=== PATIENT | male | born 1950 | race Two or more races ===

== ENCOUNTER 2022-12-17 13:56 | Inpatient (IN) | payer OTHER, MEDICAID ==
[~2022-12-17] VITALS: Ht 167.6 cm; Wt 75.3 kg
[2022-12-17 14:17] VITALS: BP 143/58
--- NOTE | 2022-12-17 14:19 | NUR ---
Patient was wheelchair assisted to bed 5.
[2022-12-17] MEDS ORDERED: MORPHINE SULFATE 4 MG/ML SYR IVP ONE ×2 (14:55→16:30)
[2022-12-17] MEDS ORDERED: NACL 0.9% 1,000 ML IV ONE ×2 (14:55→16:30)
[2022-12-17] MEDS ORDERED: ONDANSETRON 4 MG/2 ML VIAL IVP ONE (14:55)
[2022-12-17 15:48] LABS: BASOPHILS % (AUTO) 0.4 % (0.0-2.0); EOSINOPHILS % (AUTO) 0.1 % (0.0-4.0); HEMATOCRIT 23.4 % (36-52); HEMOGLOBIN 7.3 g/dL (12.0-18.0); LYMPHOCYTES # (AUTO) 0.9 K/uL (2.0-11.5); LYMPHOCYTES % (AUTO) 8.8 % (20.5-51.1); MEAN CORPUSCULAR HEMOGLOBIN 19 pg (27-31); MEAN CORPUSCULAR HGB CONC 31 g/dL (33-37); MEAN CORPUSCULAR VOLUME 60.6 fL (80-94); MONOCYTES # (AUTO) 0.7 K/uL (0.8-1.0); MONOCYTES % (AUTO) 6.7 % (1.7-9.3); NEUTROPHILS # (AUTO) 8.2 K/uL (1.8-7.7); PLATELET COUNT (AUTO) 324 K/uL (140-450); RED BLOOD CELL COUNT(AUTO) 3.86 MIL/uL (4.20-6.10); RED CELL DISTRIBUTION WIDTH 18.4 % (11.6-13.7); WHITE BLOOD COUNT (AUTO) 9.7 K/uL (4.8-10.8)
[2022-12-17 15:59] LABS: PROTHROMBIN TIME 10.6 secs (10.8-13.4)
[2022-12-17 16:24] LABS: ALBUMIN 3.7 g/dL (3.4-5.0); ANION GAP 17.1 (8-16); ASPARTATE AMINOTRANSFERASE 21 U/L (15-37); CHLORIDE 102 mmol/L (98-107); CREATININE 1.2 mg/dL (0.6-1.3); GLUCOSE 121 mg/dL (74-106); LIPASE 85 U/L (73-393); POTASSIUM 4.1 mmol/L (3.5-5.1); SODIUM SERUM 140 mmol/L (136-145); TOTAL BILIRUBIN 0.6 mg/dL (0.0-1.0); UREA NITROGEN, BLOOD 21 mg/dL (7-18)
--- NOTE | 2022-12-17 16:27 | NUR ---
DR. JOSEPH RE-EVALUATING PATIENT AT BEDSIDE.
[2022-12-17] MEDS ORDERED: ACETAMINOPHEN 100 ML IV ONE (16:30)
--- NOTE | 2022-12-17 16:30 | NUR ---
PT C/O ABD PAIN X 2 DAYS WORSEINING TODAY. NAD. HX: HTN, DM
--- NOTE | 2022-12-17 16:36 | NUR ---
PT UNABLE TO VOID X 3 ATTEMPTS
--- NOTE | 2022-12-17 17:49 | NUR ---
UPDATED LU MOSQUEDA OF PATIENTS CONDITION.
[2022-12-17] MEDS ORDERED: MORPHINE SULFATE 4 MG/ML SYR ONE ×2 (17:58→22:37)
[2022-12-17] MEDS ORDERED: LISI5TAB18 PO (18:29)
[2022-12-17] MEDS ORDERED: GABA100C PO (18:29)
[2022-12-17] MEDS ORDERED: INSU100I7 SQ (18:29)
[2022-12-17] MEDS ORDERED: OMEP20EC11 PO (18:29)
[2022-12-17] MEDS ORDERED: ATOR40TA PO (18:29)
[2022-12-17] MEDS ORDERED: METF-346 PO (18:29)
[2022-12-17] MEDS ORDERED: APIX5TAB PO (18:29)
--- NOTE | 2022-12-17 18:33 | NUR ---
MED REC COMPLETE.
[2022-12-17 20:26] LABS: APPEARANCE,URINE CLEAR (CLEAR); BILIRUBIN,URINE NEGATIVE (NEGATIVE); BLOOD, URINE NEGATIVE (NEGATIVE); COLOR,URINE YELLOW (YELLOW); LEUKOCYTE ESTERASE ,URINE NEGATIVE (NEGATIVE); NITRITE, URINE NEGATIVE (NEGATIVE); UGLUCOSE NEGATIVE (NEGATIVE)
--- NOTE | 2022-12-17 20:28 | NUR ---
ADMISSION TO TELE DR SHAW TO ADMIT
[2022-12-17] MEDS ORDERED: NACL 0.9% 1,000 ML IV SCH ×2 (20:35→22:40)
--- NOTE | 2022-12-17 21:09 | NUR ---
CALLED TO GIVE REPORT TO LENI RN FOR CONTINUE OF CARE. PT WILL BE GOING TO TELE BED 127-B, VIA GURNEY TRANSFER. PT A&OX4, NO DISTTESS NOTED.
[2022-12-17 21:40] VITALS: BP 171/66
--- NOTE | 2022-12-17 21:40 | NUR ---
RECEIVED PT FROM ER A NEW ADMIT. AMBULATED TO THE BED WITH STEADY GAIT. COMPLAINING OF ABDOMINAL PAIN. CALL PLACED TO DR. SHAW, PER MD WILL BE PUTTING IN ORDERS. NO ACUTE RESPIRATORY ADMISSION QUESTIONS DONE USING AIR POLLUTION CONTROL ENGINEER PATIENCE #[id number]. SKIN WARM AND DRY TO TOUCH. ORIENTED TO MST SET UP, UPDATED WHITEBOARD, CALL LIGHT GIVEN TO PT, INSTRUCTION ON USE PROVIDED. INSTRUCTED TO CALL IF ASSISTANCE IS NEEDED. PT VERBALL ACKNOWLEDGE.
--- NOTE | 2022-12-17 22:34 | NUR ---
NEW ORDER FOR PAIN MEDICATION GIVEN BY DR. SHAW. INFORMED MD THAT SMALL BOWEL SERIES LAST PICTURES TO BE TAKEN AT 0000 PER X-RAY TECH, WILL INFORM HER OF RESULTS. PER MD NGT TO BE INSERTED WHEN RESULTS OF THE SMALL BOWEL SERIES IS OUT.
[2022-12-17] MEDS: MORPHINE SULFATE 4 MG/ML SYR IVP PRN (22:37)
[2022-12-17] MEDS ORDERED: POTASSIUM CHLORIDE 10 MEQ TABER PO PRN (22:40)
[2022-12-17 23:17] LABS: BARBITURATE, URINE NEGATIVE ng/ml (NEG <=200); BENZODIAZEPINE, URINE NEGATIVE ng/mL (NEG <=200); CANNABINOID, URINE NEGATIVE ng/mL (NEG <=50); COCAINE, URINE NEGATIVE ng/mL (NEG <=300); OPIATE, URINE POSITIVE ng/mL (NEG <=2000); PHENCYCLIDINE SCREEN,URINE NEGATIVE ng/mL (NEG <=25)
[2022-12-17 23:26] LABS: BASOPHILS % (AUTO) 0.4 % (0.0-2.0); EOSINOPHILS % (AUTO) 0.5 % (0.0-4.0); HEMATOCRIT 20.7 % (36-52); LYMPHOCYTES # (AUTO) 1.7 K/uL (2.0-11.5); LYMPHOCYTES % (AUTO) 15.5 % (20.5-51.1); MEAN CORPUSCULAR HEMOGLOBIN 19 pg (27-31); MEAN CORPUSCULAR HGB CONC 31 g/dL (33-37); MEAN CORPUSCULAR VOLUME 60.5 fL (80-94); MONOCYTES # (AUTO) 1.3 K/uL (0.8-1.0); MONOCYTES % (AUTO) 11.8 % (1.7-9.3); NEUTROPHILS # (AUTO) 7.7 K/uL (1.8-7.7); NEUTROPHILS % (AUTO) 71.8 % (42.2-75.2); PLATELET COUNT (AUTO) 297 K/uL (140-450); RED BLOOD CELL COUNT(AUTO) 3.42 MIL/uL (4.20-6.10); RED CELL DISTRIBUTION WIDTH 18.3 % (11.6-13.7); WHITE BLOOD COUNT (AUTO) 10.7 K/uL (4.8-10.8)
--- NOTE | 2022-12-17 23:37 | NUR ---
2237- MEDICATED PT WITH MORPHINE ORDERED, 05/13 ABDOMINAL PAIN. [id number] FOR PAIN, PT DENIES PAIN AT THIS TIME, MEDICATION HELPED PER PT.
[2022-12-17 23:48] LABS: HEMOGLOBIN 6.5 g/dL (12.0-18.0)
--- NOTE | 2022-12-17 23:51 | NUR ---
CALL PLACED TO DR. SHAW REGARDING HGB-6.5 AND TO LET MD KNOW THAT SMALL BOWEL FOLLOW THROUGH WILL NOT BE READ UNTIL [place] UNLESS ORDERED STAT. AWAITING CALL BACK.
[2022-12-18] VITALS: BP 136/56
[2022-12-18 00:04] LABS: ANION GAP 13.3 (8-16); CARBON DIOXIDE 27.8 mmol/L (21-32); CHLORIDE 106 mmol/L (98-107); CREATININE 1.1 mg/dL (0.6-1.3); GLUCOSE 66 mg/dL (74-106); POTASSIUM 4.1 mmol/L (3.5-5.1); SODIUM SERUM 143 mmol/L (136-145); UREA NITROGEN, BLOOD 19 mg/dL (7-18)
--- NOTE | 2022-12-18 00:12 | NUR ---
DR. SHAW ORDERED 1 UNIT PRBC TO BE TRANSFUSED FOR HGB-6.5. PER MD ORDER SMALL BOWEL FOLLOW THROUGH STAT, CALLED XRAY MADE AWARE. WILL INFORM HER OF RESULTS SOON I HAVE IT, NGT STILL ON HOLD PER MD.
[2022-12-18 00:23] LABS: AMYLASE 89 U/L (25-115); CHOL/HDL RATIO 2.1 (1-4.5); FREE T4 (FREE THYROXINE) 1.08 ng/dL (0.76-1.46); HDL CHOLESTEROL 42 mg/dL (40-60); LDL (CALC) 37 mg/dL (60-100); MAGNESIUM 1.5 mg/dL (1.8-2.4); PHOSPHORUS 5.2 mg/dL (2.5-4.9); THYROID STIMULATING HORMONE 1.49 uIU/mL (0.34-3.74); TRIGLYCERIDES 59 mg/dL (30-150)
[2022-12-18] MEDS: MAG SULF 2000 MG/WATER PREMIX 50 ML IV PRN (00:37)
--- NOTE | 2022-12-18 00:45 | NUR ---
INFORMED PT THAT ORDERED 1 UNIT OF PRBC HGB-6.5, CASINO ATTENDANT HEIDI WITH ID #[id number], PT AGREED AND SIGNED CONSENT. WILL TRANSFUSE SOON BLOOD IS READY.
--- NOTE | 2022-12-18 01:06 | NUR ---
BLOOD SUGAR ON BMP-66 MG/DL, SPOT SUGAR CHECKED 63 MG/DL. PT ASYMPTOMATIC AT THIS TIME. CALL PLACED DR. SHAW, AWAITING CALL BACK.
--- NOTE | 2022-12-18 01:15 | NUR ---
PER ARTIFICIAL LIMB FITTER, LAB CALLED AND INFORMED HER THAT NO BLOOD AVAILABLE AT THIS TIME. WILL FOLLOW UP.
--- NOTE | 2022-12-18 01:22 | NUR ---
ORDERED 1 UNIT PRBC STAT. LAB CALLED AND SAID THEY DO NOTHAVE TYPE B BLOOD AND THEY HAVE TO ORDER IT. TOLD THEM TO ORDER STAT.
--- NOTE | 2022-12-18 01:37 | NUR ---
2ND CALL PLACED TO DR. SHAW TO INFORM OF BS RESULTS. LEFT MESSAGE, AWAITING CALL BACK.
--- NOTE | 2022-12-18 02:00 | NUR ---
3RD CALL PLACED TO DR. SHAW, APPLICATION DEVELOPMENT INTERN AWARE. AWAITING CALL BACK.
--- NOTE | 2022-12-18 02:20 | NUR ---
ROUNDING DONE. PATIENT IS ASLEEP. BREATHING EVEN AND UNLABORED. CALL LIGHT WITHIN REACH.
--- NOTE | 2022-12-18 02:26 | NUR ---
DR. SHAW GAVE ORDERS. WILL CARRY OUT.
[2022-12-18] MEDS ORDERED: DEXTROSE 50% 50 ML SYR IVP PRN (02:30)
[2022-12-18] MEDS: MORPHINE SULFATE 4 MG/ML SYR IVP PRN ×4 (02:34→15:02)
--- NOTE | 2022-12-18 03:33 | NUR ---
RESULT OF SMALL BOWEL FOLLOW THROUGH RELAYED TO DR. SHAW, ORDERED TO GIVE MILK OF MAGNEIA NOW AND DAILY/PRN. START PT ON CLEAR LIQUID DIET AND NO NGT. WILL CARRY OUT ORDER.
[2022-12-18] MEDS ORDERED: MAGNESIUM HYDROXIDE 2400 MG/30 ML UDC PO ONE (03:34)
[2022-12-18] MEDS ORDERED: MAGNESIUM HYDROXIDE 2400 MG/30 ML UDC PO PRN (03:35)
[2022-12-18] MEDS: DEXT 5% /NACL 0.9% 1,000 ML IV SCH ×2 (03:40→22:30)
[2022-12-18 04:00] VITALS: BP 141/61
[2022-12-18] MEDS: ONDANSETRON 4 MG/2 ML VIAL IVP PRN (05:28)
--- NOTE | 2022-12-18 05:29 | NUR ---
WILL RETURN AT A LATER TIME PT IS IN PAIN AND HAS LARGE AMOUNT OF EMESIS LEADS WERE PLACED ON PT AND HE PROCEEDED TO VOMIT MULTIPLE TIMES AND RN WAS NOTIFIED
--- NOTE | 2022-12-18 05:48 | NUR ---
0540-PT COMPLAINING OF 05/13 ABDOMINAL, CALL PLACED TO DR. SHAW. AWAITING CALL BACK. 6005- DR. HYLTON IS HERE, INFORMED OF PTS COMPLAINING OF ABDOMINAL PAIN. PER MD WILL CHECK ON PT.
--- NOTE | 2022-12-18 05:53 | NUR ---
DR. HYLTON MADE AWARE OF HGB-6.5, ORDERED 1 UNIT PRBC TO BE TRANSFUSED BUT BLOOD NOT AVAILABLE.
--- NOTE | 2022-12-18 06:00 | NUR ---
ROUNDING DONE ON PT, PT CURRENTLY ASLEEP. NO S/SX OF PAIN NOR DISCOMFORT. NO NAUSEA NOR VOMITING NOTED AT THIS TIME.
[2022-12-18 06:04] LABS: BASOPHILS % (AUTO) 0.4 % (0.0-2.0); HEMATOCRIT 23.8 % (36-52); HEMOGLOBIN 7.2 g/dL (12.0-18.0); LYMPHOCYTES # (AUTO) 0.7 K/uL (2.0-11.5); MEAN CORPUSCULAR HEMOGLOBIN 19 pg (27-31); MEAN CORPUSCULAR HGB CONC 30 g/dL (33-37); MEAN CORPUSCULAR VOLUME 61.7 fL (80-94); MONOCYTES % (AUTO) 10.9 % (1.7-9.3); NEUTROPHILS # (AUTO) 7.4 K/uL (1.8-7.7); NEUTROPHILS % (AUTO) 80.7 % (42.2-75.2); PLATELET COUNT (AUTO) 318 K/uL (140-450); RED BLOOD CELL COUNT(AUTO) 3.85 MIL/uL (4.20-6.10); RED CELL DISTRIBUTION WIDTH 18.5 % (11.6-13.7); WHITE BLOOD COUNT (AUTO) 9.2 K/uL (4.8-10.8)
--- NOTE | 2022-12-18 06:23 | NUR ---
PER DR. HYLTON INSERT NGT TO LIS. INFORMED PT OF ORDER TO INSERT NGT, PT REFUSED. DR. BLACKBURN IS STILL HERE AND INFORMED MD OF REFUSAL.
[2022-12-18 06:29] LABS: ANION GAP 13.7 (8-16); CARBON DIOXIDE 28.4 mmol/L (21-32); CHLORIDE 105 mmol/L (98-107); CREATININE 1.1 mg/dL (0.6-1.3); GLUCOSE 107 mg/dL (74-106); MAGNESIUM 2.3 mg/dL (1.8-2.4); PHOSPHORUS 4.9 mg/dL (2.5-4.9); POTASSIUM 4.1 mmol/L (3.5-5.1); SODIUM SERUM 143 mmol/L (136-145); UREA NITROGEN, BLOOD 19 mg/dL (7-18)
--- NOTE | 2022-12-18 06:29 | NUR ---
CURRENT HGB-7.2 DR HYLTON MADE AWARE, PER MD CONTINUE TO TRANSFUSE 1 UNIT PRBC ORDERED.
[2022-12-18] MEDS: BLOOD GLUCOSE MONITORING 1 DEV DEV FS SCH ×4 (06:34→21:35)
[2022-12-18 08:00] VITALS: BP 138/54
[2022-12-18] MEDS ORDERED: metFORMIN 500 MG TAB PO SCH (08:00)
[2022-12-18] MEDS ORDERED: NON-FORMULARY ITEM (Omeprazole* (Prilosec*) 20 MG) PO SCH (09:00)
--- NOTE | 2022-12-18 09:05 | NUR ---
PATIENT HAS BEEN SCREENED AND CATEGORIZED MODERATE NUTRITION RISK. PATIENT WILL BE SEEN WITHIN 3-5 DAYS OF ADMISSION. REVIEWED BY GUALBERTO JULES RD
[2022-12-18] MEDS: PANTOPRAZOLE 40 MG INJ VIAL IVP SCH (09:11)
[2022-12-18] MEDS: GABAPENTIN 100 MG CAP PO SCH ×3 (09:21→17:08)
[2022-12-18] MEDS: lisinopriL 5 MG TAB PO SCH (09:21)
[2022-12-18] MEDS: DOCUSATE SODIUM 100 MG GELCAP PO SCH ×2 (09:23→21:00)
[2022-12-18] MEDS: APIXABAN 2.5 MG TAB PO SCH (09:25)
[2022-12-18 12:00] VITALS: BP 154/64
[2022-12-18 16:00] VITALS: BP 148/87
[2022-12-18] MEDS: INSULIN LISPRO SLIDING SCALE 100 UNITS/ML VIAL SUBQ PRN ×2 (17:01→21:58)
--- NOTE | 2022-12-18 19:27 | NUR ---
ENDORSE PATIENT IN STABLE CONDITION TO PM SHIFT WHILE NG-TUBE CONNECT TO WALL SUCTION. PIV INFUSING. PATIENT IS STILL NPO
--- NOTE | 2022-12-18 19:28 | NUR ---
RECEIVED SHIFT REPORT FROM JULIET ZULUAGA AND PATIENT WAS IN BED WITH FAMILY X 2 AT BEDSIDE. DENIES ABDOMINAL PAIN, NAUSEA OR VOMITING. PATIENT WAS STABLE AT THIS TIME. KEPT CLEAN AND DRY. NG TUBE INTACT FOR SUCTIONING. NO NOTED RESPIRATORY DISTRESS. PATIENT AND FAMILY INQUIRED ABOUT FOOD AND WATER CONSUMPTION. PATIENT WAS EDUCATED ON THE NEED TO FOLLOW ORDERS FOR NOTHING BY MOUTH FOR NOW UNTIL MD ADVISE DIFFERENT. PATIENT UNDERSTOOD AND AGREED. PATIENT STATED HE FEELS MUCH BETTER AFTER MORNING VOMITING EPISODE. SIDE RAILS UP X 2 FOR SAFETY AND COMFORT. CALL LIGHT WITHIN REACH. [email or web address]
[2022-12-18 20:00] VITALS: BP 146/42
[2022-12-18] MEDS ORDERED: INSULIN LANTUS 100 UNITS/ML 10 ML VIAL SUBQ SCH (21:00)
[2022-12-18] MEDS: ACETAMINOPHEN 325 MG TAB PO PRN (22:01)
[2022-12-18] MEDS: ATORVASTATIN 20 MG TAB PO SCH (22:03)
[2022-12-18] MEDS ORDERED: SODIUM FERRIC GLUCONATE 12.5 MG/ML AMP IV ONE (22:10)
--- NOTE | 2022-12-18 22:16 | NUR ---
PATIENT BECAME ARGUMENTATIVE DURING MEDICATION PASS. PATIENT REFUSED TYLENOL, LIPITOR, AND INSULIN COVERAGE FOR BLOOD SUGAR OF 189. PATIENT'S SON WAS CALLED TO ASSIST TO TAKING MEDICATION AND PATIENT STILL REFUSED LOAN SERVICING SPECIALIST MD WAS NOTIFIED OF PATIENT BEHAVIOR AT THIS TIME. [email or web address]
[2022-12-18] MEDS: SODIUM FERRIC GLUCONATE 125 MG in NACL 0.9% 100 ML IV SCH (22:22)
--- NOTE | 2022-12-18 22:31 | NUR ---
PATIENT BECAME ARGUMENTATIVE DURING MEDICATION PASS. PATIENT REFUSED HALF OF HIS TYLENOL FOR ELEVATED TEMPERATURE, ONE AND A HALF PILLS OF LIPITOR, AND INSULIN COVERAGE TO BLOOD SUGAR OF 189. CALLED PATIENT'S SON TO CONVINCE THE PATIENT TO TAKE HIS MEDICATION BUT HE GREW MORE FRUSTRATED AND REFUSED. WAS NOTIFIED OF PATIENT CURRENT BEHAVIOR TO REFUSE CARE. [email or web address]
--- NOTE | 2022-12-18 23:35 | NUR ---
PATIENT TEMPERATURE HAS A TEMPERATURE OF 102.3, BLOOD PRESSURE OF 95/36 THEN 102/36 AFTER TWO MINUTES, WITH PULSE AT 114. MD NOTIFIED OF LOW BLOOD PRESSURE AND BECAUSE PATIENT IS STILL REFUSING CARE TO REDUCE TEMPERATURE. [email or web address]
[2022-12-19] VITALS: BP 102/36
--- NOTE | 2022-12-19 00:55 | NUR ---
PATIENT NOTED IN BED WITHOUT INCIDENT. SLEEPING WITHOUT PAIN/DISCOMFORT. NO NOTED RESPIRATORY DISTRESS. SIDE RAILS UP X 2 CALL LIGHT WITHIN REACH. [email or web address]
[2022-12-19 04:00] VITALS: BP 154/68
[2022-12-19] MEDS: ONDANSETRON 4 MG/2 ML VIAL IVP PRN (05:17)
--- NOTE | 2022-12-19 05:17 | NUR ---
PATIENT HAS VOMITED TWICE WITH OUTPUT OF 200MLS. COVERING RN WAS TOLD AND WILL GIVE ZOFRAN TO STOP THE NAUSEA. NO S/S OF ASPIRATION OR CONGESTION. NURSING WILL MONITOR AND CONTINUE CHARTING ON THE MATTER. THIS WILL BE ENDORSED TO AM SHIFT. [email or web address]
[2022-12-19 05:39] LABS: BASOPHILS % (AUTO) 0.1 % (0.0-2.0); HEMATOCRIT 22.3 % (36-52); LYMPHOCYTES # (AUTO) 0.9 K/uL (2.0-11.5); LYMPHOCYTES % (AUTO) 6.4 % (20.5-51.1); MEAN CORPUSCULAR HEMOGLOBIN 18 pg (27-31); MEAN CORPUSCULAR HGB CONC 31 g/dL (33-37); MEAN CORPUSCULAR VOLUME 60.1 fL (80-94); MONOCYTES # (AUTO) 2.1 K/uL (0.8-1.0); MONOCYTES % (AUTO) 15.2 % (1.7-9.3); NEUTROPHILS # (AUTO) 11.1 K/uL (1.8-7.7); NEUTROPHILS % (AUTO) 78.3 % (42.2-75.2); PLATELET COUNT (AUTO) 314 K/uL (140-450); RED BLOOD CELL COUNT(AUTO) 3.72 MIL/uL (4.20-6.10); RED CELL DISTRIBUTION WIDTH 18.6 % (11.6-13.7); WHITE BLOOD COUNT (AUTO) 14.1 K/uL (4.8-10.8)
[2022-12-19 06:06] LABS: ANION GAP 14.3 (8-16); CARBON DIOXIDE 28.7 mmol/L (21-32); CHLORIDE 102 mmol/L (98-107); CREATININE 1.5 mg/dL (0.6-1.3); GLUCOSE 228 mg/dL (74-106); SODIUM SERUM 141 mmol/L (136-145); UREA NITROGEN, BLOOD 33 mg/dL (7-18)
[2022-12-19 06:11] LABS: MAGNESIUM 2.2 mg/dL (1.8-2.4); PHOSPHORUS 4.2 mg/dL (2.5-4.9)
[2022-12-19 06:26] LABS: HEMOGLOBIN 6.8 g/dL (12.0-18.0)
--- NOTE | 2022-12-19 06:29 | NUR ---
MARY FROM LAB REPORTED PATIENT LAB VALUE FOR HEMOGLOBIN AT 6.9. IT WAS REPORTED TO DR MITCHELL.
--- NOTE | 2022-12-19 06:30 | NUR ---
WAS NOTIFIED OF CRITICAL LABS. CONTINUE WITH BLOOD TRANSFUSION FROM PREVIOUS DAY. [email or web address]
[2022-12-19] MEDS: BLOOD GLUCOSE MONITORING 1 DEV DEV FS SCH ×4 (07:04→21:00)
[2022-12-19] MEDS: INSULIN LISPRO SLIDING SCALE 100 UNITS/ML VIAL SUBQ PRN ×4 (07:07→22:20)
--- NOTE | 2022-12-19 07:19 | NUR ---
ENDORSED CONTINUITY FOR CARE TO RAUL ZULUAGA (REGISTRY), PATIENT WAS STABLE DURING SHIFT CHANGE. [email or web address]
[2022-12-19 08:00] VITALS: BP 132/59
[2022-12-19] MEDS: PANTOPRAZOLE 40 MG INJ VIAL IVP SCH (08:29)
[2022-12-19] MEDS: MORPHINE SULFATE 4 MG/ML SYR IVP PRN (08:32)
[2022-12-19] MEDS: APIXABAN 2.5 MG TAB PO SCH (09:00)
[2022-12-19] MEDS: lisinopriL 5 MG TAB PO SCH (09:00)
[2022-12-19 09:06] LABS: FOLIC ACID > 20.00 ng/mL (>3.0)
[2022-12-19] MEDS: DOCUSATE SODIUM 100 MG GELCAP PO SCH ×2 (09:53→20:08)
[2022-12-19] MEDS: GABAPENTIN 100 MG CAP PO SCH ×3 (09:53→17:03)
[2022-12-19 10:01] VITALS: BP 110/48
--- NOTE | 2022-12-19 14:48 | NUR ---
Patient resting in bed with low intermittent suction via nasogastric tube.
[2022-12-19 16:00] VITALS: BP 123/53
[2022-12-19] MEDS: DEXT 5% /NACL 0.9% 1,000 ML IV SCH (18:30)
--- NOTE | 2022-12-19 19:30 | NUR ---
RECD. REPORT FROM MARGARETH GARCIA. PATIENT RESTING IN BED, AWAKE, A/OX4. RESPIRATION EVEN AND UNLABORED. IV OF D5NS AT 50 ML/HR INFUSING RIGHT AC G20. NGT IN PLACED ON LOW INTERMITTENT SUCTION DRAINING LIGHT BROWN FLUID. USES THE URINAL. DENIES PAIN 0/10.
[2022-12-19 20:00] VITALS: BP 115/54
--- NOTE | 2022-12-19 20:00 | NUR ---
Patient's Plan of Care was discussed and reviewed with HANNAH: RENEE
[2022-12-19 20:02] LABS: FERRITIN 9 ng/mL (30 - 400)
[2022-12-19] MEDS: ATORVASTATIN 20 MG TAB PO SCH (20:08)
[2022-12-19] MEDS: ACETAMINOPHEN 325 MG TAB PO PRN (20:25)
--- NOTE | 2022-12-19 21:10 | NUR ---
HAD BM MODERATE AMOUNT OF YELLOW SOFT BM WITH SOME LIQUID IN IT. STOOL FOR OCCULT BLOOD OBTAINED AND SENT TO LAB.
[2022-12-19] MEDS: SODIUM FERRIC GLUCONATE 125 MG in NACL 0.9% 100 ML IV SCH (21:35)
--- NOTE | 2022-12-20 02:20 | NUR ---
ASSISTED TO BR TO HAVE ANOTHER BM. HAD MODERATE AMOUNT OF LIQUID BM. BACK TO BED AFTER BM. ADVISED TO GO BACK TO SLEEP.
[2022-12-20 04:00] VITALS: BP 132/48
[2022-12-20] MEDS: MUPIROCIN CA NASAL 2% 1GM TUBE NS SCH (04:12)
[2022-12-20] MEDS: CHLORHEXADINE GLUC 2% CLOTH TP SCH (04:12)
--- NOTE | 2022-12-20 04:12 | NUR ---
POSITIVE FOR MRSA OF THE NARES. ADMINISTERED BACTROBAN AND CHLORHEXIDINE PER MD ORDER.
[2022-12-20] MEDS: DEXT 5% /NACL 0.9% 1,000 ML IV SCH ×2 (04:21→14:30)
[2022-12-20 05:48] LABS: BASOPHILS % (AUTO) 0.2 % (0.0-2.0); EOSINOPHILS % (AUTO) 0.1 % (0.0-4.0); HEMATOCRIT 20.9 % (36-52); LYMPHOCYTES % (AUTO) 7.1 % (20.5-51.1); MEAN CORPUSCULAR HEMOGLOBIN 19 pg (27-31); MEAN CORPUSCULAR HGB CONC 30 g/dL (33-37); MEAN CORPUSCULAR VOLUME 61.5 fL (80-94); MONOCYTES % (AUTO) 13.5 % (1.7-9.3); NEUTROPHILS # (AUTO) 11.6 K/uL (1.8-7.7); NEUTROPHILS % (AUTO) 79.1 % (42.2-75.2); PLATELET COUNT (AUTO) 277 K/uL (140-450); RED CELL DISTRIBUTION WIDTH 19.1 % (11.6-13.7); WHITE BLOOD COUNT (AUTO) 14.7 K/uL (4.8-10.8)
[2022-12-20 06:16] LABS: MAGNESIUM 2.4 mg/dL (1.8-2.4); PHOSPHORUS 2.9 mg/dL (2.5-4.9)
[2022-12-20 06:17] LABS: HEMOGLOBIN 6.3 g/dL (12.0-18.0)
--- NOTE | 2022-12-20 06:25 | NUR ---
INFORMED DR. HYLTON PT HGB TODAY IS 6.3 BUT BLOOD TYPE B+ HARD TO PROCURE, LAB INQUIRING IF WE CAN GIVE TYPE O INSTEAD. STATED OK TO GIVE TYPE O AND GIVE PROCRIT 5000 UNITS SQ 3 TIMES A DAY. CHARGE NURSE YUAN INFORMED LAB ABOUT DR. HYLTON ORDER TO GIVE TYPE 0.
[2022-12-20 06:26] LABS: ANION GAP 13.7 (8-16); CARBON DIOXIDE 26.2 mmol/L (21-32); CHLORIDE 107 mmol/L (98-107); CREATININE 1.3 mg/dL (0.6-1.3); GLUCOSE 171 mg/dL (74-106); POTASSIUM 3.9 mmol/L (3.5-5.1); SODIUM SERUM 143 mmol/L (136-145); UREA NITROGEN, BLOOD 39 mg/dL (7-18)
[2022-12-20] MEDS: BLOOD GLUCOSE MONITORING 1 DEV DEV FS SCH ×4 (06:36→20:32)
[2022-12-20] MEDS: INSULIN LISPRO SLIDING SCALE 100 UNITS/ML VIAL SUBQ PRN ×3 (06:38→20:34)
--- NOTE | 2022-12-20 07:20 | NUR ---
ENDORSED TO JOSE ZULUAGA IN STABLE CONDITION FOR CONTINUITY OF CARE.
[2022-12-20 08:00] VITALS: BP 125/55
[2022-12-20] MEDS: APIXABAN 2.5 MG TAB PO SCH (09:00)
[2022-12-20] MEDS ORDERED: EPOETIN ALFA-EPBX 10,000 UNITS/ML VIAL SUBQ SCH (09:00)
[2022-12-20] MEDS: lisinopriL 5 MG TAB PO SCH (10:03)
[2022-12-20] MEDS: GABAPENTIN 100 MG CAP PO SCH ×3 (10:07→20:14)
[2022-12-20] MEDS: PANTOPRAZOLE 40 MG INJ VIAL IVP SCH (10:07)
[2022-12-20] MEDS: DOCUSATE SODIUM 100 MG GELCAP PO SCH ×2 (10:16→20:15)
--- NOTE | 2022-12-20 10:25 | NUR ---
DC PLANNING LATE ENTRY- COLLAT INFO GATHERED 518 AT 11:10AM ASSESSMENT COMPLETE PLEASE REFER TO ASSESSMENT FOR ADDITIONAL DETAILS DC PLAN IS TENTATIVE ON PHYSICIANS RECOMMENDATIONS. KOFI REPORTS THAT HIS FATHER HAS BEEN NONCOMPLIANT AND CAN BE RESISTANT TO CARE. SW ENDORSED TO CM Addendum: 12/20/22 at 1025 by Maria Elena CARVER Amended: Links added.
--- NOTE | 2022-12-20 14:15 | NUR ---
B POSITIVE BLOOD UNIT IS IN PROCESS. NO TRANSFUSION REACTION.
--- NOTE | 2022-12-20 18:34 | NUR ---
Patient is talking on phone with family and visiting with his 's brother post blood transfusion.
--- NOTE | 2022-12-20 19:30 | NUR ---
RECEIVED PT FROM DAY RN FOR CONTINUITY OF CARE. PT AWAKE, ALERT AND ORIENTED X 4, ON ROOM AIR. NO S/SX OF DISTRESS NOTED. POC DISCUSSED. NO COMPLAINS OF PAIN RIGHT NOW. ALL PRECAUTIONS IN PLACE. CALL LIGHT WITHIN REACH. WILL CONTINUE TO MONITOR.
[2022-12-20 20:00] VITALS: BP 140/55
[2022-12-20] MEDS: SODIUM FERRIC GLUCONATE 125 MG in NACL 0.9% 100 ML IV SCH (20:14)
[2022-12-20] MEDS: ATORVASTATIN 20 MG TAB PO SCH (20:15)
--- NOTE | 2022-12-20 21:00 | NUR ---
SCHEDULED MEDICATIONS GIVEN. PT TOLERATED WELL. BLOOD SUGAR WAS 193. 2 UNITS INSULIN GIVEN. WILL CONTINUE TO MONITOR.
[2022-12-20 21:08] LABS: HEMATOCRIT 22.8 % (36-52); HEMOGLOBIN 7.1 g/dL (12.0-18.0)
--- NOTE | 2022-12-21 00:59 | NUR ---
PT ASLEEP IN BED. NO S/SX OF DISTRESS NOTED. CALL LIGHT WITHIN REACH. WILL CONTINUE TO MONITOR.
[2022-12-21] MEDS: HYDROcodone/APAP 7.5/325 MG 1 TAB PO PRN ×2 (01:30→16:39)
[2022-12-21] MEDS: CHLORHEXADINE GLUC 2% CLOTH TP SCH (02:32)
[2022-12-21] MEDS: MUPIROCIN CA NASAL 2% 1GM TUBE NS SCH (02:32)
[2022-12-21] MEDS: MORPHINE SULFATE 4 MG/ML SYR IVP PRN ×2 (02:50→16:51)
--- NOTE | 2022-12-21 02:50 | NUR ---
PT COMPLAINED OF 8/10 ABDOMINAL PAIN.PRN MORPHINE GIVEN.
[2022-12-21 05:48] LABS: BASOPHILS % (AUTO) 0.1 % (0.0-2.0); EOSINOPHILS % (AUTO) 0.4 % (0.0-4.0); HEMATOCRIT 23.4 % (36-52); HEMOGLOBIN 7.4 g/dL (12.0-18.0); LYMPHOCYTES # (AUTO) 1.1 K/uL (2.0-11.5); LYMPHOCYTES % (AUTO) 10.7 % (20.5-51.1); MEAN CORPUSCULAR HEMOGLOBIN 20 pg (27-31); MEAN CORPUSCULAR HGB CONC 32 g/dL (33-37); MONOCYTES # (AUTO) 1.1 K/uL (0.8-1.0); MONOCYTES % (AUTO) 10.3 % (1.7-9.3); NEUTROPHILS # (AUTO) 8.4 K/uL (1.8-7.7); NEUTROPHILS % (AUTO) 78.5 % (42.2-75.2); PLATELET COUNT (AUTO) 276 K/uL (140-450); RED BLOOD CELL COUNT(AUTO) 3.66 MIL/uL (4.20-6.10); RED CELL DISTRIBUTION WIDTH 19.8 % (11.6-13.7); WHITE BLOOD COUNT (AUTO) 10.7 K/uL (4.8-10.8)
[2022-12-21 06:07] LABS: ANION GAP 12.3 (8-16); CARBON DIOXIDE 24.6 mmol/L (21-32); CHLORIDE 107 mmol/L (98-107); GLUCOSE 190 mg/dL (74-106); POTASSIUM 3.9 mmol/L (3.5-5.1); SODIUM SERUM 140 mmol/L (136-145); UREA NITROGEN, BLOOD 24 mg/dL (7-18)
[2022-12-21 06:08] LABS: MAGNESIUM 1.9 mg/dL (1.8-2.4); PHOSPHORUS 2.8 mg/dL (2.5-4.9)
[2022-12-21] MEDS: INSULIN LISPRO SLIDING SCALE 100 UNITS/ML VIAL SUBQ PRN ×3 (06:35→21:43)
[2022-12-21] MEDS: BLOOD GLUCOSE MONITORING 1 DEV DEV FS SCH ×4 (06:35→21:39)
--- NOTE | 2022-12-21 07:19 | NUR ---
PT IS STABLE. NO ACUTE EVENT THROUGHOUT THE NIGHT. NO S/SX OF DISTRESS AT THIS MOMENT. NO COMPLAINS OF PAIN. ALL NEEDS MET.ALL PRECAUTIONS IN PLACE. CALL LIGHT WITHIN REACH. WILL ENDORSE TO DAY SHIFT NURSE.
--- NOTE | 2022-12-21 07:21 | NUR ---
ASSUMED CONTINUITY OF CARE. INITIAL ASSESSMENT DONE. KEEP COMFORTABLE ON BED. CALL LIGHT WITHIN REACH.
[2022-12-21 08:00] VITALS: BP 149/53
--- NOTE | 2022-12-21 08:00 | NUR ---
Patient's Plan of Care was discussed and reviewed with [facility]: DARWIN
[2022-12-21] MEDS: GABAPENTIN 100 MG CAP PO SCH ×3 (08:39→17:50)
[2022-12-21] MEDS: lisinopriL 5 MG TAB PO SCH (08:39)
[2022-12-21] MEDS: DOCUSATE SODIUM 100 MG GELCAP PO SCH ×2 (08:41→21:00)
[2022-12-21] MEDS: APIXABAN 2.5 MG TAB PO SCH (08:49)
[2022-12-21] MEDS: PANTOPRAZOLE 40 MG INJ VIAL IVP SCH (09:27)
[2022-12-21] MEDS: DEXT 5% /NACL 0.9% 1,000 ML IV SCH (10:30)
--- NOTE | 2022-12-21 11:54 | NUR ---
12/21/22 RD INITIAL ASSESSMENT COMPLETED PLEASE REFER TO NUTRITION ASSESSMENT UNDER CARE ACTIVITY FOR ESTIMATED NUTRITIONAL NEEDS. 1. RECOMMEND [id number] SOFT DIET TOLERATED 2. MONITOR BLOOD GLUCOSE LEVELS AND PO INTAKE 3. RD TO FOLLOW-UP 7 DAYS, LOW RISK GUALBERTO JULES RD
--- NOTE | 2022-12-21 12:50 | NUR ---
CONSUMED 45% LUNCH FOOD. TOLERATED WELL. NO C/O N/V.
--- NOTE | 2022-12-21 15:20 | NUR ---
DR. ROPER CAME AND SPOKE TO PT. AT BEDSIDE WITH ASSISTANCE FROM JARED BROWN REGARDING D/C PLAN TOMORROW. INFORMED CHARGE NURSE VELASQUEZ SALAS.
[2022-12-21 16:00] VITALS: BP 150/56
--- NOTE | 2022-12-21 16:51 | NUR ---
C/O ABD PAIN 03/13. MEDICATED MORPHINE 2 MG. IVP PRN Q4 PER MD ORDER GIVEN BY THIERNO SALAS. WASTED MORPHINE 2 MG IV AND IT WAS WITNESSED BY MYSELF. NO INITIAL REACTION FROM PAIN MEDICINE NOTED. WILL MONITOR.
--- NOTE | 2022-12-21 19:21 | NUR ---
BEDSIDE REPORT GIVEN TO RENEE BROWN. IN STABLE CONDITION.
--- NOTE | 2022-12-21 19:22 | NUR ---
RECD. RESTING IN BED, AWAKE, A/OX4. RESPIRATION EVEN AND UNLABORED. IV OF D5 0.45% NS INFUSING AT 50 ML/HR. ABLE TO AMBULATE BY HIMSELF TO THE BR. DENIES PAIN 0/10.
[2022-12-21 20:00] VITALS: BP 142/61
[2022-12-21] MEDS: SODIUM FERRIC GLUCONATE 125 MG in NACL 0.9% 100 ML IV SCH (20:47)
--- NOTE | 2022-12-21 20:47 | NUR ---
DARIENIT IVPB INFUSED BY JASMIN ZULUAGA.
[2022-12-21] MEDS: ATORVASTATIN 20 MG TAB PO SCH (21:33)
--- NOTE | 2022-12-21 22:00 | NUR ---
Patient's Plan of Care was discussed and reviewed with HANNAH DAUGHERTY
--- NOTE | 2022-12-22 | NUR ---
RESTING IN BED, SLEEPING COMFORTABLY.
[2022-12-22 04:00] VITALS: BP 129/53
--- NOTE | 2022-12-22 04:00 | NUR ---
SLEEPING COMFORTABLY IN BED, VS STABLE.
[2022-12-22] MEDS: MUPIROCIN CA NASAL 2% 1GM TUBE NS SCH (05:21)
[2022-12-22] MEDS: CHLORHEXADINE GLUC 2% CLOTH TP SCH (05:22)
[2022-12-22 05:44] LABS: BASOPHILS % (AUTO) 0.2 % (0.0-2.0); EOSINOPHILS # (AUTO) 0.1 K/uL (0-0.4); EOSINOPHILS % (AUTO) 0.8 % (0.0-4.0); HEMATOCRIT 23.5 % (36-52); HEMOGLOBIN 7.4 g/dL (12.0-18.0); LYMPHOCYTES # (AUTO) 1.8 K/uL (2.0-11.5); LYMPHOCYTES % (AUTO) 17.5 % (20.5-51.1); MEAN CORPUSCULAR HEMOGLOBIN 20 pg (27-31); MEAN CORPUSCULAR HGB CONC 32 g/dL (33-37); MEAN CORPUSCULAR VOLUME 63.9 fL (80-94); MONOCYTES % (AUTO) 9.3 % (1.7-9.3); NEUTROPHILS # (AUTO) 7.6 K/uL (1.8-7.7); NEUTROPHILS % (AUTO) 72.2 % (42.2-75.2); PLATELET COUNT (AUTO) 258 K/uL (140-450); RED BLOOD CELL COUNT(AUTO) 3.67 MIL/uL (4.20-6.10); RED CELL DISTRIBUTION WIDTH 20.2 % (11.6-13.7); WHITE BLOOD COUNT (AUTO) 10.5 K/uL (4.8-10.8)
[2022-12-22 05:53] LABS: ANION GAP 13.2 (8-16); CARBON DIOXIDE 24.8 mmol/L (21-32); CHLORIDE 106 mmol/L (98-107); CREATININE 0.8 mg/dL (0.6-1.3); GLUCOSE 135 mg/dL (74-106); MAGNESIUM 1.6 mg/dL (1.8-2.4); PHOSPHORUS 3.7 mg/dL (2.5-4.9); SODIUM SERUM 140 mmol/L (136-145); UREA NITROGEN, BLOOD 19 mg/dL (7-18)
[2022-12-22] MEDS: DEXT 5% /NACL 0.9% 1,000 ML IV SCH ×2 (06:30→07:46)
[2022-12-22] MEDS: BLOOD GLUCOSE MONITORING 1 DEV DEV FS SCH ×2 (07:15→11:53)
--- NOTE | 2022-12-22 07:15 | NUR ---
PT IS STABLE. ENDORSED PT TO ADRWIN YOUNG FOR CONTINUITY OF CARE.
--- NOTE | 2022-12-22 07:21 | NUR ---
ASSUMED CONTINUITY OF CARE. INITIAL ASSESSMENT DONE. KEEP COMFORTABLE ON BED. CALL LIGHT WITHIN REACH.
[2022-12-22 08:00] VITALS: BP 140/55
--- NOTE | 2022-12-22 08:00 | NUR ---
Patient's Plan of Care was discussed and reviewed with TRAY CHECKER: DARWIN
--- NOTE | 2022-12-22 08:55 | NUR ---
DR. ROPER CAME AND SPOKE TO PT. AT BEDSIDE WITH ASSISTANCE FROM CINDY -RN REGARDING D/C INSTRUCTIONS & TEACHINGS, AND MD FOLLOW UP.
[2022-12-22] MEDS: GABAPENTIN 100 MG CAP PO SCH (09:03)
[2022-12-22] MEDS: lisinopriL 5 MG TAB PO SCH (09:03)
[2022-12-22] MEDS: DOCUSATE SODIUM 100 MG GELCAP PO SCH (09:03)
[2022-12-22] MEDS: APIXABAN 2.5 MG TAB PO SCH (09:04)
[2022-12-22] MEDS: PANTOPRAZOLE 40 MG INJ VIAL IVP SCH (09:42)
[2022-12-22] MEDS: MAG SULF 2000 MG/WATER PREMIX 50 ML IV PRN (09:51)
[2022-12-22] MEDS ORDERED: DOCU-299 PO (09:58)
[2022-12-22] MEDS ORDERED: ASCO500C20 PO (09:58)
[2022-12-22] MEDS ORDERED: FERR325E14 PO (09:58)
[2022-12-22] MEDS ORDERED: VITA-415 PO (09:58)
[2022-12-22] MEDS: INSULIN LISPRO SLIDING SCALE 100 UNITS/ML VIAL SUBQ PRN (11:53)
--- NOTE | 2022-12-22 12:15 | NUR ---
D/C HOME VIA WHEELCHAIR ACCOMPANIED BY PT. SON -KOFI MOSQUEDA. NO C/O PAIN. NO SOB, NOTED. NO C/O N/V. IN STABLE CONDITION. INFORMED CHARGE NURSE VELASQUEZ SALAS.
== END 2022-12-22 12:49 | disposition home or self-care (01) | DRG 388 ==
LOC: MED 13:56 → MTU 20:36 → MMU 20:36
PROC: 0D9670Z Drainage of Stomach with Drainage Device, Via Natural or Artificial Opening (ICD-10-PCS; 2022-12-18)
PROC: 30233N1 Transfusion of Nonautologous Red Blood Cells into Peripheral Vein, Percutaneous Approach (ICD-10-PCS; principal; 2022-12-20)
DX: K56.600 Partial intestinal obstruction, unspecified as to cause (principal); N17.0 Acute kidney failure with tubular necrosis; R65.10 Systemic inflammatory response syndrome (SIRS) of non-infectious origin without acute organ dysfunction; D50.9 Iron deficiency anemia, unspecified; E86.0 Dehydration; E11.9 Type 2 diabetes mellitus without complications; E78.5 Hyperlipidemia, unspecified; I10 Essential (primary) hypertension; Z20.822 Contact with and (suspected) exposure to COVID-19; Z79.899 Other long term (current) drug therapy; Z79.84 Long term (current) use of oral hypoglycemic drugs; Z79.01 Long term (current) use of anticoagulants; Z90.49 Acquired absence of other specified parts of digestive tract
CPT/HCPCS: 36415; 71045; 74018; 74250; 80048; 80053; 80305; 81003; 82140; 82150; 82272; 82607; 82728; 82746; 82948; 83036; 83540; 83605; 83690; 83735; 83880; 84100; 84439; 84443; 84484; 85018; 85025; 85610; 85730; 86886; 86900; 86901; 86920; 87081; 96374; 96375; 99285; C9113; J1815; J2270; J2405; J2916; J3475; P9016; Q0092; Q5106

== ENCOUNTER 2023-01-07 18:25 | Inpatient (IN) | payer OTHER ==
[~2023-01-07] VITALS: Ht 172.7 cm; Wt 64.0 kg
[~2023-01-07 18:25] MED LIST: APIX5TAB PO; ASCO500C20 PO; ATOR40TA PO; DOCU-299 PO; FERR325E14 PO; GABA100C PO; INSU100I7 SQ; LISI5TAB18 PO; METF-346 PO; OMEP20EC11 PO; VITA-415 PO
[2023-01-07 18:34] VITALS: BP 167/71
--- NOTE | 2023-01-07 18:39 | NUR ---
Pt bib bls for abd pain x 3 days. Pt has visited this ed for the same reason previously. Pt has difficulty complying with asessmet due to pain. Pt is a/o x 4, vss, no ss of acute distress, breathing equal and unlabored, speech clear. Pt on monitor. MD at bedside.
[2023-01-07] MEDS ORDERED: ONDANSETRON 4 MG/2 ML VIAL IVP ONE (18:45)
[2023-01-07] MEDS ORDERED: MORPHINE SULFATE 4 MG/ML SYR IVP ONE ×2 (18:45→19:30)
[2023-01-07] MEDS ORDERED: NACL 0.9% 1,000 ML IV ONE ×2 (18:45→19:55)
--- NOTE | 2023-01-07 18:54 | NUR ---
LAB AT BEDSIDE
[2023-01-07 19:07] LABS: BASOPHILS % (AUTO) 0.1 % (0.0-2.0); EOSINOPHILS % (AUTO) 0.1 % (0.0-4.0); HEMATOCRIT 30.5 % (36-52); HEMOGLOBIN 9.3 g/dL (12.0-18.0); LYMPHOCYTES # (AUTO) 1.4 K/uL (2.0-11.5); MEAN CORPUSCULAR HEMOGLOBIN 21 pg (27-31); MEAN CORPUSCULAR HGB CONC 31 g/dL (33-37); MEAN CORPUSCULAR VOLUME 67.7 fL (80-94); MONOCYTES # (AUTO) 1.8 K/uL (0.8-1.0); MONOCYTES % (AUTO) 8.6 % (1.7-9.3); NEUTROPHILS # (AUTO) 17.2 K/uL (1.8-7.7); NEUTROPHILS % (AUTO) 84.2 % (42.2-75.2); PLATELET COUNT (AUTO) 244 K/uL (140-450); RED CELL DISTRIBUTION WIDTH 27.1 % (11.6-13.7); WHITE BLOOD COUNT (AUTO) 20.5 K/uL (4.8-10.8)
[2023-01-07 19:37] LABS: ALBUMIN 3.5 g/dL (3.4-5.0); ASPARTATE AMINOTRANSFERASE 17 U/L (15-37); CHLORIDE 101 mmol/L (98-107); GLUCOSE 184 mg/dL (74-106); LIPASE 198 U/L (73-393); SODIUM SERUM 139 mmol/L (136-145); TOTAL BILIRUBIN 0.5 mg/dL (0.0-1.0); UREA NITROGEN, BLOOD 38 mg/dL (7-18)
--- NOTE | 2023-01-07 19:51 | NUR ---
pt taken to CT via Dominic
[2023-01-07] MEDS ORDERED: PIPERACILLIN/TAZOBACTAM 3.375 GM in DEXTROSE 5% 50 ML IV ONE (19:55)
[2023-01-07] MEDS ORDERED: PIPERACILLIN/TAZOBACTAM 3.375 GM VIAL IV ONE (20:02)
--- NOTE | 2023-01-07 20:04 | NUR ---
PT RETURN FROM CT
--- NOTE | 2023-01-07 20:34 | NUR ---
Blood draw done at bedside.
[2023-01-07] MEDS ORDERED: DEXT 5% / NACL 0.9% 1,000 ML IV ONE (21:05)
--- NOTE | 2023-01-07 21:07 | NUR ---
Left with OR team.
--- NOTE | 2023-01-07 21:50 | NUR ---
PT TAKEN BY OR TEAM
[2023-01-07] MEDS ORDERED: BUPIVACAINE-MPF/EPI 0.25% 30 ML VIAL INJ ONE (22:10)
[2023-01-07] MEDS ORDERED: LIDOCAINE 1% 500 MG/50 ML VIAL ONE (22:10)
[2023-01-07] MEDS ORDERED: DOCUSATE SODIUM 100 MG GELCAP PO PRN (22:55)
[2023-01-07] MEDS ORDERED: HYDROcodone/APAP 7.5/325 MG 1 TAB PO PRN (22:55)
[2023-01-07] MEDS ORDERED: ACETAMINOPHEN 325 MG TAB PO PRN (22:55)
[2023-01-07] MEDS ORDERED: MORPHINE SULFATE 2 MG/ML SYR IVP PRN (22:55)
[2023-01-07] MEDS ORDERED: guaiFENesin DM 200/20 MG-10 ML 10 ML UDC PO PRN (22:55)
[2023-01-07] MEDS ORDERED: ZOLPIDEM 5 MG TAB PO PRN (22:55)
[2023-01-07] MEDS ORDERED: HYDROmorphone 1 MG/ML AMP IVP PRN (22:55)
[2023-01-07] MEDS ORDERED: LABETALOL 100 MG/20 ML VIAL ONE (23:00)
[2023-01-07] MEDS ORDERED: ROCURONIUM 50 MG/5 ML VIAL IV ONE ×2 (23:00→23:14)
[2023-01-07] MEDS ORDERED: fentaNYL citrate 0.05 MG/ML - 50mL vial IV ONE (23:00)
[2023-01-07] MEDS ORDERED: HYDROmorphone 2 MG TAB ONE (23:00)
[2023-01-07] MEDS ORDERED: PROPOFOL 200 MG/20 ML VIAL IV ONE ×2 (23:00→23:14)
[2023-01-07] MEDS ORDERED: SUGAMMADEX SODIUM 200 MG/2 ML VIAL IV ONE (23:00)
[2023-01-07] MEDS ORDERED: VECURONIUM 10 MG VIAL IVP ONE (23:00)
[2023-01-07] MEDS ORDERED: SUCCINYLCHOLINE CHLORIDE 200 MG/10 ML VIAL IVP ONE ×2 (23:00→23:13)
[2023-01-07] MEDS ORDERED: DEXTROSE 50% 50 ML SYR IVP PRN (23:00)
[2023-01-07] MEDS ORDERED: ONDANSETRON 4 MG/2 ML VIAL ONE (23:00)
[2023-01-07] MEDS ORDERED: DEFEROXAMINE 500 MG VIAL ONE (23:00)
[2023-01-07] MEDS ORDERED: INSULIN LISPRO 100 UNITS/ML VIAL SUBQ ONE (23:00)
[2023-01-07] MEDS ORDERED: DEXAMETHASONE 4 MG/ML VIAL ONE ×2 (23:00→23:13)
[2023-01-07] MEDS ORDERED: fentaNYL citrate 0.05 MG/ML VIAL ONE ×2 (23:12→23:21)
[2023-01-07 23:44] LABS: AMYLASE 108 U/L (25-115); FREE T4 (FREE THYROXINE) 1.42 ng/dL (0.76-1.46); HDL CHOLESTEROL 49 mg/dL (40-60); LDL (CALC) 32 mg/dL (60-100); MAGNESIUM 1.7 mg/dL (1.8-2.4); PHOSPHORUS 3.6 mg/dL (2.5-4.9); THYROID STIMULATING HORMONE 1.73 uIU/mL (0.34-3.74); TRIGLYCERIDES 86 mg/dL (30-150)
[2023-01-08] VITALS (11 sets, daily range): BP systolic 102–188; BP diastolic 44–92
[2023-01-08] MEDS ORDERED: fentaNYL citrate 0.05 MG/ML VIAL ONE (01:49)
[2023-01-08] MEDS ORDERED: ROCURONIUM 50 MG/5 ML VIAL IV ONE (02:19)
[2023-01-08] MEDS ORDERED: SUGAMMADEX SODIUM 200 MG/2 ML VIAL IV ONE (02:19)
--- NOTE | 2023-01-08 02:35 | NUR ---
RECEIVED PT FROM OR PER GARO, POST EXPLORATORY LAPAROTOMY, EXTENSIVE LYSIS OF ADHESIONS, SMALL BOWEL RESECTION. PT IS AWAKE BUT DROWSY. WITH O2 INHALATION AT 10 L/MIN VIA FACE MASK. WITH NGT ATTACHED TO RIGHT NARE ON HIGH INTERMITTENT SUCTION WITH GREENISH OUTPUT DRAINING. WITH MEDIAL ABDOMINAL SURGICAL WOUND DRESSING- INTACT AND DRY. WITH DOTTIE DRAIN ON NEGATIVE PRESSURE OVER RIGHT LATERAL LOWER ABDOMEN WITH SEROSANGUINEOUS OUTPUT. WITH PERIPHERAL IV ACCESS GAUGE 20 OVER LEFT WRIST AND RIGHT ANTECUBITAL AREA ATTACHED TO SALINE LOCK. ANOTHER IV ACCESS OVER RIGHT METACARPAL VEIN, G20 WITH LR RUNNING BOLUS DRIP. WITH SADLER CATHETER DRAINING BY GRAVITY WITH YELLOW COLORED OUTPUT. NO OTHER WOUNDS NOTED. SAFETY PRECAUTIONS INITIATED AND MAINTAINED.
[2023-01-08] MEDS ORDERED: HYDROmorphone PFS 2 MG/ML SYR ONE (02:41)
[2023-01-08] MEDS ORDERED: LABETALOL 20 MG/4 ML VIAL IVP ONE (02:56)
[2023-01-08 05:05] LABS: BASOPHILS % (AUTO) 0.1 % (0.0-2.0); HEMATOCRIT 27.7 % (36-52); HEMOGLOBIN 8.5 g/dL (12.0-18.0); LYMPHOCYTES # (AUTO) 0.7 K/uL (2.0-11.5); LYMPHOCYTES % (AUTO) 5.1 % (20.5-51.1); MEAN CORPUSCULAR HEMOGLOBIN 21 pg (27-31); MEAN CORPUSCULAR HGB CONC 31 g/dL (33-37); MEAN CORPUSCULAR VOLUME 67.6 fL (80-94); MONOCYTES # (AUTO) 1.5 K/uL (0.8-1.0); MONOCYTES % (AUTO) 10.6 % (1.7-9.3); NEUTROPHILS # (AUTO) 11.9 K/uL (1.8-7.7); NEUTROPHILS % (AUTO) 84.2 % (42.2-75.2); PLATELET COUNT (AUTO) 198 K/uL (140-450); RED BLOOD CELL COUNT(AUTO) 4.09 MIL/uL (4.20-6.10); RED CELL DISTRIBUTION WIDTH 27.2 % (11.6-13.7); WHITE BLOOD COUNT (AUTO) 14.2 K/uL (4.8-10.8)
[2023-01-08] MEDS: hydrALAZINE 20 MG/ML VIAL IVP PRN (05:10)
[2023-01-08 05:20] LABS: ALBUMIN 2.3 g/dL (3.4-5.0); ANION GAP 16.4 (8-16); ASPARTATE AMINOTRANSFERASE 18 U/L (15-37); CARBON DIOXIDE 23.3 mmol/L (21-32); CHLORIDE 105 mmol/L (98-107); CREATININE 1.3 mg/dL (0.6-1.3); GLUCOSE 226 mg/dL (74-106); POTASSIUM 4.7 mmol/L (3.5-5.1); SODIUM SERUM 140 mmol/L (136-145); TOTAL BILIRUBIN 0.4 mg/dL (0.0-1.0); UREA NITROGEN, BLOOD 30 mg/dL (7-18)
[2023-01-08] MEDS ORDERED: PIPERACILLIN/TAZOBACTAM 2.25 GM VIAL IV ONE (05:38)
[2023-01-08] MEDS: PIPERACILLIN/TAZOBACTAM 2.25 GM in DEXTROSE 5% 50 ML IV SCH ×5 (05:47→17:20)
[2023-01-08] MEDS: DEXT 5% /NACL 0.9% 1,000 ML IV SCH ×4 (06:55→22:03)
[2023-01-08] MEDS ORDERED: BLOOD GLUCOSE MONITORING 1 DEV DEV FS SCH (07:30)
--- NOTE | 2023-01-08 07:30 | NUR ---
REPORT GIVEN TO DAY SHIFT NURSEALLEN RN. ALL QUESTIONS ASKED. PT STILL FOR CLOSE MONITORING.
--- NOTE | 2023-01-08 07:31 | NUR ---
RECEIVED REPORT FROM SILVERSMITH APPRENTICE NURSE. PATIENT LYING DOWN IN BED, CONTINUES TO HAVE MODERATE TO SEVERE ABD PAIN, WILL CHECK ON PAIN MEDICATION. IV SITES INTACT, INFUSING IVF PER MD ORDERS. ABDOMINAL WOUND DRESSINGS INTACT, RIGHT DOTITE DRAIN IN PLACE WITH SEROSANGUINOUS DRAINAGE. REVIEWED PLAN OF CARE WITH PATIENT. VERBALIZED UNDERSTANDING. REINFORCEMENT NEEDED.
--- NOTE | 2023-01-08 07:33 | NUR ---
RECEIVED ON SUPPLEMENTAL OXYGEN AT 6 LPM VIA SIMPLE MASK; CHANGED OXYGEN DEVICE TO NASAL CANNULA TITRATED FIO2 TO 4 LPM WITH HUMIDIFIER; BRAKER PASSENGER TRAIN TO MONITOR AND TITRATE FIO2 TOLERATED; ALLEN/FRAME OPERATOR NOTIFIED
[2023-01-08] MEDS ORDERED: TPN PER PHARMACY MC PRN (08:15)
[2023-01-08] MEDS: INSULIN LISPRO SLIDING SCALE 100 UNITS/ML VIAL SUBQ PRN ×2 (08:26→12:41)
[2023-01-08] MEDS: PANTOPRAZOLE 40 MG INJ VIAL IVP SCH (08:27)
--- NOTE | 2023-01-08 08:44 | NUR ---
PATIENT HAS BEEN SCREENED AND CATEGORIZED HIGH NUTRITION RISK. PATIENT WILL BE SEEN WITHIN 1-2 DAYS OF ADMISSION. FNS REFERRAL RECEIVED FOR NAUSEA/VOMITING X3 DAYS AND REFUSING TO EAT ON 01/08/23. 01/08/23-01/09/[address]
--- NOTE | 2023-01-08 08:45 | NUR ---
SCHEDULED MEDICATIONS DUE GIVEN. COMPLAINS OF 10/10 PAIN, DILAUDID GIVEN AT THIS TIME. NGTUBE DISCONTINUED, OKAY TO GIVE ICE CHIPS AND START TPN X [address] CHRISTIAN. ORDERS INPUTTED. WILL CONTINUE TO MONITOR.
[2023-01-08 09:18] LABS: MAGNESIUM 1.4 mg/dL (1.8-2.4); PHOSPHORUS 4.3 mg/dL (2.5-4.9)
[2023-01-08] MEDS: MORPHINE SULFATE 2 MG/ML SYR IVP PRN ×2 (10:29→16:49)
[2023-01-08] MEDS ORDERED: MAG SULF 2000 MG/WATER PREMIX 50 ML IV SCH (10:45)
--- NOTE | 2023-01-08 10:58 | NUR ---
PICC NURSE PLACED DENISSE PICC LINE, CXR VERIFIED PLACEMENT. MORPHINE PRN GIVEN PRIOR FOR SEVERE PAIN. PATIENT REFUSED TO REPOSITION AT THIS TIME DUE TO SEVERE PAIN. PATIENT ACKNOWLEDGES NEEDS TO BE TURNED BUT CANNOT RIGHT NOW BECAUSE SLIGHT MOVEMENT CAUSES SEVERE PAIN. HE WILL LET US KNOW LATER WHEN PAIN SUBSIDES AND WE WILL REPOSITION.
--- NOTE | 2023-01-08 11:54 | NUR ---
01/08/23 RD INITIAL ASSESSMENT COMPLETED PLEASE REFER TO NUTRITION ASSESSMENT UNDER CARE ACTIVITY FOR ESTIMATED NUTRITIONAL NEEDS. 1. CONTINUE NPO DIET TOLERATED AND ADVANCE TO CLEAR LIQUID DIET ONCE MEDICALLY APPROPRIATE. 2. RD WILL FOLLOW UP ON WEIGHT, LABS, PO INTAKE AND GI FUNCTION TO SEE IF SUPPLEMENTS ARE APPROPRIATE MOVING FORWARD. 3. RD TO FOLLOW-UP 3-5 DAYS, MODERATE RISK BEBO HAMILTON, RD
--- NOTE | 2023-01-08 12:30 | NUR ---
SUPPLEMENTAL OXYGEN TITRATED FIO2 TO 2 LPM BY ALLEN/EFREM ZULUAGA
[2023-01-08] MEDS: BLOOD GLUCOSE MONITORING 1 DEV DEV FS SCH ×2 (12:38→17:15)
--- NOTE | 2023-01-08 12:39 | NUR ---
DC PLANNIN YRS OLD MALE PATIENT WAS ADMITTED FROM HOME WITH A DX OF PERFORATED BOWEL. PATIENT HAS A HX OF HTN AND DM. CT ABD/PELVIS SHOWED DILATED FLUID AND FECAL FILLED LOOPS OF SMALL BOWEL. RAPID COVID TEST NEGATIVE. ON O2 4L/NC SATING 99%. ADMINISTERED IVF, IV ABX ZOSYN. CONSULTED WITH SURGEON, JOSE AND NEPHANDREW. DC PLAN PER PATIENT RESPOND TO THE TREATMENT. CM TO FOLLOW Addendum: 01/09/23 at 1440 by RAKEL BEE CM DC PLANNING PATIENT HAD EXTENSIVE RUBEN WITH SMALL BOWEL PERFORATION S/P RESECTION. PATIENT IS TACHYCARDIC ON RA.01/07 BLOOD CULTURE NO GROWTH.01/08 MRSA (-).CXR - NO ACUTE CARDIO PULMONARY DISEASE.ON ZOSYN.HAD 1 UNIT PRBC FOR HGB 6.5 .LATEST HGB 8.1. .SURGERY,IDALMIS GARCIA ON BOARD.CM TO FOLLOW. Addendum: 01/10/23 at 0921 by Rachelle Link RN DC PLANNING: S/P LAPAROTOMY SMALL BOWEL RESECTION WITH DOTTIE DRAINAGE, ON TPN, STARTED CLEAR LIQUID DIET TOLERATED WELL. WBC 14.4 CONTINUED IVF AND IV ABX ZOSYN. H/H 7.5/23.4 MONITOR H/H. CARDIO, PULMO NEPHRO AND SURGEON FOLLOWING . PER NEPHRO NO NEED FOR HEMODIALYSIS. DOWN GRADE TO TELE. DC PLAN TO GO HOME [facility] WHEN STABLE. CM TO FOLLOW
--- NOTE | 2023-01-08 13:51 | NUR ---
PT. WITH LOW SHAR SCALE AT MODERATE TO HIGH RISK, CONTINUE TO FOLLOW PRESSURE INJURY PREVENTION INTERVENTIONS. -POSITIONING: TURN AND REPOSITION PATIENT Q 2H OR SOONER USE PILLOWS TO KEEP BONY PROMINENCES FROM DIRECT CONTACT WITH SURFACES USE REPOSITIONING WEDGES TO PROVIDE 30-DEGREE ANGLE FOR SIDE LYING POSITIONS OFFLOADING OR FOAM DRESSING TO ALL TUBING TO PREVENT MEDICAL DEVICES RELATED PRESSURE INJURY -RE-EVALUATING AND MANAGING INCONTINENCE MONITOR SKIN CONDITION DURING POSITION CHANGE DO NOT MASSAGE REDNESS, BONY PROMINENCES FREQUENT AFTAB-CARE AND PROVIDE BARRIER CREAMS PRN IF SOILING MOISTURE CONTROL BY OFFER BED TAYLOR/URINAL /ABSORBENT PAD TO WICK AND HOLD MOISTURE KEEP SKIN DRY AND PROTECT FROM FRICTION -MANAGE FRICTION/SHEAR/MOBILITY KEEP HOB AT THE LOWEST LEVEL OF ELEVATION NO MORE THAN 30 DEGREE UNLESS OTHERWISE CONTRAINDICATED USE LIFT SHEET OR TRANSFER DEVICE TO MOVE PATIENT AND PREVENT LATERAL SHEER. PROTECT HEELS, ELBOWS BONY PROMINENCES WITH SKIN BERRIES OR FOAM DRESSING IF EXPOSED TO FRICTION OFFLOAD BILATERAL HEELS BY PLACING PILLOWS UNDER CALVES AT ALL TIMES, UNLESS OTHERWISE CONTRAINDICATED -PRESSURE REDISTRIBUTION SURFACE THERAPY JASVIR ISOFLEX MATTRESS -NUTRITION: PLEASE FOLLOW RD RECOMMENDATIONS AND OFFER NUTRITION SUPPLEMENTS IF ORDERED. PLEASE CONTACT WOUND CARE NURSE FOR ANY QUESTION AND CHANGE OF WOUND CONDITION.
--- NOTE | 2023-01-08 14:05 | NUR ---
REMOVED FROM SUPPLEMENTAL OXYGEN TO ROOM AIR BY ALLEN/FLOW MANAGER
--- NOTE | 2023-01-08 15:00 | NUR ---
PT SLEEPING, AROUSABLE BY VOICE. WILL CONTINUE TO MONITOR.
--- NOTE | 2023-01-08 17:20 | NUR ---
SCHEDULED MEDICATIONS DUE GIVEN. WILL CONTINUE TO MONITOR.
--- NOTE | 2023-01-08 19:14 | NUR ---
GAVE REPORT TO MERCHANT POLICE NURSE FOR CONTINUITY OF CARE.
--- NOTE | 2023-01-08 19:14 | NUR ---
RECEIVED REPORT FROM PEWTER CASTER NURSE, MARGARETH VILLA. ALL CARES ASSUMED. RECEIVED PT LYING ON BED, AWAKE AND ORIENTED WITH SIDE RAILS RAISED UP. STILL IN MILD TO MODERATE PAIN. ON ROOM AIR WITH SPO2 AT 99%. ON SINUS TACHYCARDIA. AFEBRILE. WITH CLEAR BREATH SOUNDS. WITH ABDOMINAL WOUND DRESSING - DRY AND INTACT. WITH DOTTIE DRAIN INTACT OVER RLQ ON NEGATIVE PRESSURE WITH MINIMAL SEROSANGUINEOUS OUTPUT NOTED. WITH RIGHT UPPER PICC LINE FLOWING D5%0.9 NS AT 125 ML/HR - PATENT AND INTACT. ADDITIONAL PERIPHERAL IV ACCESS G20 NOTED OVER LEFT WRIST AND RIGHT METACARPAL VEIN - FLUSHED AND CAPPED. SADLER CATHETER INTACT DRAINING TO BY GRAVITY. SAFETY PRECAUTIONS IN PLACE. FIXED PT IN BED. WILL MONITOR PT CLOSELY.
[2023-01-08] MEDS: MULTIVITAMIN-12 10 ML in DEXTROSE 50% 600 ML, AMINO ACIDS 8.5% 500 ML, FAT EMULSION 20%... IV SCH ×4 (20:00)
--- NOTE | 2023-01-08 20:00 | NUR ---
CBG CHECKED- 126 MG/DL. TPN ATTACHED TO PICC LINE AND STARTED AT 30 ML/HR X 2HRS - FLOWING WELL
--- NOTE | 2023-01-08 20:43 | NUR ---
RECEIVED A CALL FROM DR. PHILL CHRISTIAN. UPDATED CURRENT PTS STATUS. WITH ORDERS TO WATCH OUT FOR INCREASING TACHYCARDIA ASSOCIATED WITH FEVER AND CHANGES IN DOTTIE OUTPUT APPEARANCE - BILIOUS AND PUS-LIKE. HE ALSO INFORMED THAT DR. ESPARZA WILL COVER THE PT FOR TODAY AND TOMORROW.
[2023-01-08] MEDS: HYDROmorphone 1 MG/ML AMP IVP PRN (20:57)
--- NOTE | 2023-01-08 20:57 | NUR ---
PT WITH COMPLAINTS OF PAIN 05/13. DILAUDID GIVEN IV SLOWLY. COMFORT MEASURES PROVIDED.
--- NOTE | 2023-01-08 22:00 | NUR ---
TPN TOLERATED. RATE INCREASED TO 50 ML/HR PER MD ORDER.
[2023-01-09] VITALS (17 sets, daily range): BP systolic 116–157; BP diastolic 43–67
[2023-01-09] MEDS: MORPHINE SULFATE 2 MG/ML SYR IVP PRN ×6 (01:39→20:30)
[2023-01-09] MEDS: INSULIN LISPRO SLIDING SCALE 100 UNITS/ML VIAL SUBQ PRN ×5 (02:02→23:21)
[2023-01-09] MEDS: DEXT 5% /NACL 0.9% 1,000 ML IV SCH ×2 (03:50→06:09)
--- NOTE | 2023-01-09 04:00 | NUR ---
PT REFUSED BED SPONGE BATH DUE TO PAIN. LINENS, BLANKETS CHANGED. KEPT CLEAN AND COMFORTABLE. PROVIDED TIME TO REST.
[2023-01-09 04:53] LABS: LYMPHOCYTES # (AUTO) 0.8 K/uL (2.0-11.5); LYMPHOCYTES % (AUTO) 4.6 % (20.5-51.1); MEAN CORPUSCULAR HEMOGLOBIN 21 pg (27-31); MEAN CORPUSCULAR HGB CONC 31 g/dL (33-37); MONOCYTES # (AUTO) 1.6 K/uL (0.8-1.0); MONOCYTES % (AUTO) 9.2 % (1.7-9.3); NEUTROPHILS # (AUTO) 14.7 K/uL (1.8-7.7); NEUTROPHILS % (AUTO) 86.2 % (42.2-75.2); PLATELET COUNT (AUTO) 175 K/uL (140-450); RED BLOOD CELL COUNT(AUTO) 3.13 MIL/uL (4.20-6.10); RED CELL DISTRIBUTION WIDTH 27.1 % (11.6-13.7)
[2023-01-09 04:54] LABS: HEMOGLOBIN 6.5 g/dL (12.0-18.0)
--- NOTE | 2023-01-09 04:54 | NUR ---
RECEIVED CALL FROM LAB WITH UPDATED HGB AND HEMATOCRIT LEVEL- 6.5 AND 21.0 RESPECTIVELY. NOTED.
--- NOTE | 2023-01-09 05:03 | NUR ---
DR. RUFF INFORMED OF PTS PRESENT HGB AND HCT LEVELS - WITH ORDER TO TRANSFUSE 1UNIT OF BLOOD. FACILITATED.
[2023-01-09] MEDS: PIPERACILLIN/TAZOBACTAM 2.25 GM in DEXTROSE 5% 50 ML IV SCH ×6 (05:35→23:10)
[2023-01-09 05:59] LABS: ANION GAP 11.5 (8-16); CARBON DIOXIDE 26.8 mmol/L (21-32); CHLORIDE 106 mmol/L (98-107); CREATININE 1.1 mg/dL (0.6-1.3); GLUCOSE 253 mg/dL (74-106); POTASSIUM 3.3 mmol/L (3.5-5.1); SODIUM SERUM 141 mmol/L (136-145); UREA NITROGEN, BLOOD 19 mg/dL (7-18)
[2023-01-09 06:02] LABS: MAGNESIUM 1.6 mg/dL (1.8-2.4); PHOSPHORUS 3.6 mg/dL (2.5-4.9)
[2023-01-09] MEDS: BLOOD GLUCOSE MONITORING 1 DEV DEV FS SCH ×5 (06:09→23:18)
--- NOTE | 2023-01-09 07:00 | NUR ---
PT ABLE TO SLEEP AFTER GIVING PAIN MEDICATIONS. CROSSMATCHING DONE FOR BT. INFORMED CONSENT FOR BT SECURED. STILL ON SINUS TACHYCARDIA.WITH EPISODES OF INCREASED BLOOD PRESSURE. NOT RESPIRATORY DISTRESS NOTED. STILL IN PAIN SOMETIMES FROM SURGICAL SITE. UO OF 1100ML OBTAINED AND DOTTIE OUTPUT SEROSANGUINEOS 50ML.
--- NOTE | 2023-01-09 07:15 | NUR ---
REPORT GIVEN TO [facility] NURSE, MARGARETH CAMACHO. ALL QUESTIONS ASKED.
[2023-01-09] MEDS ORDERED: MAG SULF 2000 MG/WATER PREMIX 50 ML IV SCH (07:30)
--- NOTE | 2023-01-09 07:30 | NUR ---
REPORT FROM RESIDENT CARE DIRECTOR RN. PT LYING ON BED, A/O X4. SAMOAN SPEAKER. THIS RN DOPER OPERATOR IS SAMOAN SPEAKING FLUENT. SIDE RAILS RAISED X 4 FOR SAFETY. ON ROOM AIR WITH SPO2 AT 99%, SINUS TACHYCARDIA. AFEBRILE. WITH CLEAR BREATH SOUNDS. ABD. WOUND DRESSING - DRY/INTACT. WITH DOTTIE DRAIN INTACT OVER RLQ ON NEGATIVE PRESSURE WITH MINIMAL SEROSANGUINEOUS OUTPUT NOTED. R- UPPER PICC, D5%0.9 NS AT 125 ML/HR - PATENT AND INTACT. ADDITIONAL PERIPHERAL IV ACCESS G20 L-WRIST AND R-HAND - FLUSHED AND CAPPED. SADLER CATH INTACT DRAINING BY GRAVITY. SAFETY PRECAUTIONS IN PLACE. PT. WITH NO ACUTE DISTRESS. NO SOB. WILL CONT. TO MONITOR
--- NOTE | 2023-01-09 08:05 | NUR ---
UNIT OF BLOOD PRBC [id number] STARTED TO INFUSE WITH NO DIFF. ALL PRODUCTS CHECK WITH MARISEL ZULUAGA PER PROTOCOL. PT. WITH NO ACUTE DISTRESS. PT. AGREES TO BLOOD TRANSFUSION AND CONSENT SIGNED. WILL CONT. TO MONITOR.
--- NOTE | 2023-01-09 08:30 | NUR ---
PRBC BLOOD PRODUCTS INFUSING WITH NO DIFF. PT. WITH NO ACUTE DISTRESS. AWAKE AND ALERT. NO SIGNS OF TRANSFUSION REACTION. VSS WITH NO FEVER. WILL CONT. TO MONITOR.
[2023-01-09] MEDS: PANTOPRAZOLE 40 MG INJ VIAL IVP SCH (08:56)
[2023-01-09] MEDS ORDERED: HYDROmorphone PFS 2 MG/ML SYR ONE (09:02)
[2023-01-09] MEDS: HYDROmorphone 1 MG/ML AMP IVP PRN ×2 (09:06→23:05)
--- NOTE | 2023-01-09 09:50 | NUR ---
K+ 3.3 per lab reported to pharmacy for TPN adjustment. Spoke with Siomara. Pharmacy will adjust as per protocol for TPN. Pt. with no acute distress. Awake and alert. Resting quietly. Denies pain now. Blood transfusion infusing with NO diff. No sign of transfusion adverse reaction. Will cont. to monitor.
--- NOTE | 2023-01-09 10:45 | NUR ---
Dorinda SOLANO at bedside. She removed abd. dressing with RN assistance. Dressing dry and intact. No bleeding from abd. surgical site. Sutures in place. Appears to be healing with no difficulty. Dressing re-applied and tapped with no diff. Pt. with no acute distress. Will cont. to monitor.
--- NOTE | 2023-01-09 11:00 | NUR ---
PRBC BLOOD PRODUCTS DONE INFUSING WITH NO DIFF. PT. WITH NO ACUTE DISTRESS. AWAKE AND ALERT. NO SIGNS OF TRANSFUSION REACTION. VSS WITH NO FEVER. WILL CONT. TO MONITOR. IV LINE FLUSHED AND CBC ORDERED PER PROTOCOL.
[2023-01-09] MEDS: POTASSIUM CHLORIDE 40 MEQ, LIDOCAINE MPF 1% 25 MG in NACL 0.9% 250 ML IV PRN (11:33)
[2023-01-09 12:08] LABS: T4 (THYROXINE) 6.2 ug/dL (4.5-12.0)
--- NOTE | 2023-01-09 12:35 | NUR ---
PT. TAKEN TO CT SCAN VIA BED WITH RNs, HEART MONITOR. PT. WITH NO ACUTE DISTRESS. TOLERATED WITH NO DIFF. ALL LINEN IN BED CHANGED AND PT.'S GOWN CHANGED PER DAILY HYGIENE PROTOCOL. PT. RESTING WITH NO C/O PAIN. WILL CONT. TO MONITOR
--- NOTE | 2023-01-09 13:26 | NUR ---
Status UPDATE PT LYING ON BED, A/O X4. TANZANIAN SPEAKER. THIS RN NECKTIE CENTRALIZING MACHINE OPERATOR IS TANZANIAN SPEAKING FLUENT. SIDE RAILS RAISED X 4 FOR SAFETY. ON ROOM AIR WITH SPO2 AT 95%, SINUS TACHYCARDIA. AFEBRILE. ABD. WOUND DRESSING - DRY/INTACT. WITH DOTTIE DRAIN INTACT OVER RLQ ON NEGATIVE PRESSURE WITH MINIMAL SEROSANGUINEOUS OUTPUT NOTED. R- UPPER PICC, D5%0.9 NS AT TKO FOR NOW - PATENT AND INTACT. ADDITIONAL PERIPHERAL IV ACCESS G20 L-WRIST - FLUSHED AND CAPPED. SADLER CATH INTACT DRAINING BY GRAVITY. SAFETY PRECAUTIONS IN PLACE. PT. WITH NO ACUTE DISTRESS. NO SOB. WILL CONT. TO MONITOR. PT. DENIES PAIN NOW.
[2023-01-09 13:54] LABS: HEMATOCRIT 25.8 % (36-52); HEMOGLOBIN 8.1 g/dL (12.0-18.0); MEAN CORPUSCULAR HEMOGLOBIN 22 pg (27-31); MEAN CORPUSCULAR HGB CONC 31 g/dL (33-37); MEAN CORPUSCULAR VOLUME 71.1 fL (80-94); PLATELET COUNT (AUTO) 173 K/uL (140-450); RED BLOOD CELL COUNT(AUTO) 3.63 MIL/uL (4.20-6.10); RED CELL DISTRIBUTION WIDTH 29.8 % (11.6-13.7); WHITE BLOOD COUNT (AUTO) 16.9 K/uL (4.8-10.8)
[2023-01-09 14:42] LABS: BASOPHILS % (MANUAL) 1 % (0-2); EOSINOPHILS % (MANUAL) 0 % (0-4); MONOCYTES % (MANUAL) 14 % (5-12)
[2023-01-09 14:43] LABS: LYMPHOCYTES % (MANUAL) 13 % (20-46)
--- NOTE | 2023-01-09 14:55 | NUR ---
[facility] FOOD/DRUG INTERACTION REFERRAL RECEIVED FOR PATIENT ON TPN 01/09/23. PATIENT WILL BE FOLLOWED UP WITH RD ON 01/10/23. CURRENT CALCULATION DONE ON TPN OF DEXTROSE 50%: 360GM OF DEXTROSE AND 1,224 CALORIES, AMINO ACIDS 8.5%: 61GM OF PROTEIN AND 244 CALORIES FROM PROTEIN, AND LIPIDS AT 20% GIVE 500 CALORIES. TOTAL CALORIES OF 1, 968 MEETING ALL OF THE ESTIMATED NEEDS OF THE PATIENT. GIR: 4.2.
[2023-01-09] MEDS ORDERED: MORPHINE SULFATE 4 MG/ML SYR ONE (16:21)
--- NOTE | 2023-01-09 16:22 | NUR ---
C/O of abd. pain 02/10. Pt. medicated with Morphine 3 mg IV. Accidently over-rode medication Omnicell and retrieved 4 mg dose. 1 mg Morphine was waster per protocol. Charge nurse Gideon notified. Pt. with no acute distress, awake and oriented, no distress. No change in status otherwise.
--- NOTE | 2023-01-09 17:00 | NUR ---
Status UPDATE PT LYING ON BED, A/O X4. ALGERIAN SPEAKER. THIS RN STUDENT TEACHING COORDINATOR IS ALGERIAN SPEAKING FLUENT. SIDE RAILS RAISED X 4 FOR SAFETY. ON ROOM AIR WITH SPO2 AT 95%, SINUS TACHYCARDIA. AFEBRILE. ABD. WOUND DRESSING - DRY/INTACT. WITH DOTTIE DRAIN INTACT OVER RLQ ON NEGATIVE PRESSURE WITH MINIMAL SEROSANGUINEOUS OUTPUT NOTED. R- UPPER PICC, D5%0.9 NS AT TKO FOR NOW - PATENT AND INTACT. ADDITIONAL PERIPHERAL IV ACCESS G20 L-WRIST - FLUSHED AND CAPPED. SADLER CATH INTACT DRAINING BY GRAVITY. SAFETY PRECAUTIONS IN PLACE. PT. WITH NO ACUTE DISTRESS. NO SOB. WILL CONT. TO MONITOR. PT. DENIES PAIN NOW.
[2023-01-09 18:42] LABS: APPEARANCE,URINE CLEAR (CLEAR); BILIRUBIN,URINE NEGATIVE (NEGATIVE); BLOOD, URINE 2+ (NEGATIVE); COLOR,URINE YELLOW (YELLOW); LEUKOCYTE ESTERASE ,URINE NEGATIVE (NEGATIVE); NITRITE, URINE NEGATIVE (NEGATIVE); UGLUCOSE 3+ (NEGATIVE)
[2023-01-09 18:58] LABS: RBC,URINE 11-20 (MOD) /HPF (0-5); RED BLOOD CELL CASTS,URINE 0-10 /LPF (None Seen); URINE AMORPHOUS URATE 2+ /HPF (None Seen)
--- NOTE | 2023-01-09 19:04 | NUR ---
Pt. report given to studio musician RN. Pt. with no change of status no acute distress. Denies any pain now. IV fluids infusing with no diff. Jackson draining to gravity. pt. still NPO. TPN infusing to R upper PICC line with dressing intact. Dressing intact to abd. surgical site. DOTTIE drain with 40 cc of sero-sang. fluid. Pt. with no acute distress.
[2023-01-09] MEDS: MULTIVITAMIN-12 10 ML in DEXTROSE 50% 600 ML, AMINO ACIDS 8.5% 500 ML, FAT EMULSION 20%... IV SCH ×4 (19:27)
[2023-01-09] MEDS: METOPROLOL 25 MG TAB PO SCH (20:25)
[2023-01-09] MEDS: ONDANSETRON 4 MG/2 ML VIAL IM/IVP PRN (20:30)
[2023-01-10] VITALS (14 sets, daily range): BP systolic 124–174; BP diastolic 50–74
[2023-01-10] MEDS: MORPHINE SULFATE 2 MG/ML SYR IVP PRN ×4 (03:49→19:54)
[2023-01-10] MEDS: DEXT 5% /NACL 0.9% 1,000 ML IV SCH (03:55)
[2023-01-10] MEDS: ONDANSETRON 4 MG/2 ML VIAL IM/IVP PRN ×2 (04:00→12:55)
[2023-01-10] MEDS: PIPERACILLIN/TAZOBACTAM 2.25 GM in DEXTROSE 5% 50 ML IV SCH (05:03)
[2023-01-10] MEDS: BLOOD GLUCOSE MONITORING 1 DEV DEV FS SCH ×3 (05:09→18:34)
[2023-01-10] MEDS: INSULIN LISPRO SLIDING SCALE 100 UNITS/ML VIAL SUBQ PRN ×3 (05:10→18:36)
[2023-01-10 05:21] LABS: EOSINOPHILS % (AUTO) 0.1 % (0.0-4.0); HEMATOCRIT 23.5 % (36-52); HEMOGLOBIN 7.5 g/dL (12.0-18.0); LYMPHOCYTES # (AUTO) 0.7 K/uL (2.0-11.5); LYMPHOCYTES % (AUTO) 4.8 % (20.5-51.1); MEAN CORPUSCULAR HEMOGLOBIN 23 pg (27-31); MEAN CORPUSCULAR HGB CONC 32 g/dL (33-37); MEAN CORPUSCULAR VOLUME 71.1 fL (80-94); MONOCYTES # (AUTO) 1.5 K/uL (0.8-1.0); MONOCYTES % (AUTO) 10.4 % (1.7-9.3); NEUTROPHILS # (AUTO) 11.9 K/uL (1.8-7.7); NEUTROPHILS % (AUTO) 84.7 % (42.2-75.2); PLATELET COUNT (AUTO) 173 K/uL (140-450); RED CELL DISTRIBUTION WIDTH 29.1 % (11.6-13.7); WHITE BLOOD COUNT (AUTO) 14.1 K/uL (4.8-10.8)
[2023-01-10 05:25] LABS: MAGNESIUM 2.1 mg/dL (1.8-2.4); PHOSPHORUS 2.9 mg/dL (2.5-4.9)
[2023-01-10 05:26] LABS: CARBON DIOXIDE 26.5 mmol/L (21-32); CHLORIDE 107 mmol/L (98-107); GLUCOSE 238 mg/dL (74-106); POTASSIUM 3.5 mmol/L (3.5-5.1); SODIUM SERUM 141 mmol/L (136-145); UREA NITROGEN, BLOOD 22 mg/dL (7-18)
--- NOTE | 2023-01-10 06:19 | NUR ---
1939- REPORT GIVEN BY DAY SHIFT FRINGE MAKER DULCE
--- NOTE | 2023-01-10 06:20 | NUR ---
2000 RECEIVED IN NO RESP DISTRESS. AT 2029 MORPHINE 3MG IVP WAS GIVEN FOR C/O POST OP PAIN AROUND 7 INTENSITY. DRESING IS DRY AND INTACT Addendum: 01/10/23 at 0625 by Agency 01 RN RN 2199. NO HUGE DRAINAGE FROM DOTTIE. REMAINS ST BUT AFEBRILE
--- NOTE | 2023-01-10 06:26 | NUR ---
2305- DILAUDID 2MG IVP FOR SEVERE POST OP PAIN. SIDRRAILS ARE UP TIMES 3
--- NOTE | 2023-01-10 06:27 | NUR ---
000IVF IN PLACE AND INTACT AND PATENT
--- NOTE | 2023-01-10 06:28 | NUR ---
0400- REFUSED AM BATH , PREFFERS LATER
--- NOTE | 2023-01-10 06:28 | NUR ---
0200- TURNING BY ITSELF WITH MINIMAL ASSISTANCE
--- NOTE | 2023-01-10 06:31 | NUR ---
0349- MORPHINE 3 MG IVP FOR POST OP PAIN
--- NOTE | 2023-01-10 06:32 | NUR ---
0545 - REFUSED ORAL CARE
--- NOTE | 2023-01-10 07:17 | NUR ---
REPORT FROM CENTRIFUGAL SEPARATOR RN. PT LYING ON BED, A/O X4. ANGOLAN SPEAKER. THIS RN LEAD OPERATOR IS ANGOLAN SPEAKING FLUENT. SIDE RAILS RAISED X 4 FOR SAFETY. ON ROOM AIR WITH SPO2 AT 99%, SINUS TACHYCARDIA. AFEBRILE. WITH CLEAR BREATH SOUNDS. ABD. WOUND DRESSING - DRY/INTACT. WITH DOTTIE DRAIN INTACT OVER RLQ ON NEGATIVE PRESSURE WITH MINIMAL SEROSANGUINEOUS OUTPUT NOTED. R- UPPER PICC, D5%0.9 NS AT 125 ML/HR - PATENT AND INTACT. ADDITIONAL PERIPHERAL IV ACCESS G20 L-WRIST AND R-HAND - FLUSHED AND CAPPED. SADLER CATH INTACT DRAINING BY GRAVITY. SAFETY PRECAUTIONS IN PLACE. PT. WITH NO ACUTE DISTRESS. NO SOB. WILL CONT. TO MONITOR Addendum: 01/10/23 at 0725 by SARA MCCLAIN RN IV fluid at 60 ml/Hr. IV to right hand D/C with no diff. yesterday. No other changes noted.
--- NOTE | 2023-01-10 08:13 | NUR ---
Pt. given clear liquid diet tray. Pt. tolerating with no diff. No acute distress. Awake and alert. Pt. is self feeding. Will cont. to monitor.
[2023-01-10] MEDS: PANTOPRAZOLE 40 MG INJ VIAL IVP SCH (08:33)
[2023-01-10] MEDS: METOPROLOL 25 MG TAB PO SCH ×2 (08:34→20:02)
--- NOTE | 2023-01-10 08:47 | NUR ---
MID ABDOMEN SURGICAL WOUND EZ DRY, CLEAN SECURED. RLQ ABD DOTTIE DRAINS FUNCTIONING, DRESSING DCI. PT. WITH LOW SHAR SCALE AT MODERATE TO HIGH RISK, CONTINUE TO FOLLOW PRESSURE INJURY PREVENTION INTERVENTIONS. -POSITIONING: TURN AND REPOSITION PATIENT Q 2H OR SOONER USE PILLOWS TO KEEP BONY PROMINENCES FROM DIRECT CONTACT WITH SURFACES USE REPOSITIONING WEDGES TO PROVIDE 30-DEGREE ANGLE FOR SIDE LYING POSITIONS OFFLOADING OR FOAM DRESSING TO ALL TUBING TO PREVENT MEDICAL DEVICES RELATED PRESSURE INJURY -RE-EVALUATING AND MANAGING INCONTINENCE MONITOR SKIN CONDITION DURING POSITION CHANGE DO NOT MASSAGE REDNESS, BONY PROMINENCES FREQUENT AFTAB-CARE AND PROVIDE BARRIER CREAMS PRN IF SOILING MOISTURE CONTROL BY F/C, ABSORBENT PAD TO WICK AND HOLD MOISTURE KEEP SKIN DRY AND PROTECT FROM FRICTION -MANAGE FRICTION/SHEAR/MOBILITY KEEP HOB AT THE LOWEST LEVEL OF ELEVATION NO MORE THAN 30 DEGREE UNLESS OTHERWISE CONTRAINDICATED USE LIFT SHEET OR TRANSFER DEVICE TO MOVE PATIENT AND PREVENT LATERAL SHEER. PROTECT HEELS, ELBOWS BONY PROMINENCES WITH SKIN BERRIES OR FOAM DRESSING IF EXPOSED TO FRICTION OFFLOAD BILATERAL HEELS BY PLACING PILLOWS UNDER CALVES AT ALL TIMES, UNLESS OTHERWISE CONTRAINDICATED -PRESSURE REDISTRIBUTION SURFACE THERAPY JASVIR ISOFLEX MATTRESS -NUTRITION: PLEASE FOLLOW RD RECOMMENDATIONS AND OFFER NUTRITION SUPPLEMENTS IF ORDERED. PLEASE CONTACT WOUND CARE NURSE FOR ANY QUESTION AND CHANGE OF WOUND CONDITION.
--- NOTE | 2023-01-10 09:23 | NUR ---
Pt. C/O abd. pain at 8. Dressing to abd. surgical site intact with no bleeding. Pt. medicated with morphine 3 mg IV per order. IV fluids infusing with no diff to Right upper arm PICC. Jackson cath clamped for bladder training. DOTTIE drain in place with no change in draining amount. NO acute distress. Will cont. to monitor.
--- NOTE | 2023-01-10 10:12 | NUR ---
Pt. resting quietly with eye closed, VSS. Pt. denies pain now. No change status. Will Cont to monitor.
--- NOTE | 2023-01-10 10:52 | NUR ---
Jackson cath removed intact after deflating baloon with no diff. no blood noted. Pt. tolerated with no diff. 400 of urine in collection bag. Pt. given urinal and instructed to use it as needed. Pt. verbalized understanding. Will cont to monitor
--- NOTE | 2023-01-10 10:53 | NUR ---
Status UPDATE PT LYING ON BED, A/O X4. KITTITIAN SPEAKER. THIS RN GRINDER WATCH PARTS IS KITTITIAN SPEAKING FLUENT. SIDE RAILS RAISED X 4 FOR SAFETY. ON ROOM AIR WITH SPO2 AT 95%, SINUS TACHYCARDIA. AFEBRILE. ABD. WOUND DRESSING - DRY/INTACT. WITH DOTTIE DRAIN INTACT OVER RLQ ON NEGATIVE PRESSURE WITH MINIMAL SEROSANGUINEOUS OUTPUT NOTED. R- UPPER PICC, D5%0.9 NS AT 60 ml/hr - PATENT AND INTACT. ADDITIONAL PERIPHERAL IV ACCESS G20 L-WRIST - FLUSHED AND CAPPED. SAFETY PRECAUTIONS IN PLACE. PT. WITH NO ACUTE DISTRESS. NO SOB. WILL CONT. TO MONITOR. PT. DENIES PAIN.
--- NOTE | 2023-01-10 11:20 | NUR ---
Dr. Beltrán at bedside. Dressing from abd. removed and MD ordered surgical wound open to air for now. Wound with jose carlos in place, edges well approximated, no discharge, no redness or ecchymosis. Pt. tolerating with no diff. Per Dr. Beltrán TPN to d/c after current bag hanging and done infusing. Pharmacy called and ordered for new TPN bag cancelled. Will cont to monitor.
[2023-01-10] MEDS: PIPERACILLIN/TAZOBACTAM 3.375 GM in DEXTROSE 5% 50 ML IV SCH ×3 (11:51→23:41)
--- NOTE | 2023-01-10 12:47 | NUR ---
Dr. Hernandez at bedside to examine pt. Pt.'s Troponin at 147, and ECG from yesterday shown to MD. No new orders received. Pt. denies any chest pain. No acute distress. Pt. is wake and alert. No SOB, will con.t to monitor.
--- NOTE | 2023-01-10 12:57 | NUR ---
Pt. C/O nausea, no vomiting noted. Medicated with Zofran IV per orders. Will cont. to monitor. Pt. urinated normaly 200 cc with no difflculty.
--- NOTE | 2023-01-10 13:13 | NUR ---
Pt. states feeling better with NO nausea now. NO vomiting noted. Pt. with no acute distress. awake and alert. Will cont. to monitor
--- NOTE | 2023-01-10 14:38 | NUR ---
Pt. C/O abd. pain at 7/10, no C/O of nausea or vomiting. Pt. with no acute distress. Medicated with Morphine 3 mg per orders. Will cont. to monitor. IV fluids infusing with no diff. R upper arm PICC line with dressing intact. Pt. able to urinate earlier with no with diff. ECG with ST at 99 bpm. Pt. to be transferred to floor later in shirt. Pt. with no acute distress
--- NOTE | 2023-01-10 14:55 | NUR ---
01/10/23 RD FOLLOW UP COMPLETED PLEASE REFER TO NUTRITION ASSESSMENT UNDER CARE ACTIVITY FOR ESTIMATED NUTRITIONAL NEEDS. 1.CONTINUE ON TRANSITION TO CLEAR LIQUID DIET TOLERATED OR WHEN MEDICALLY APPROPRIATE. 2. RD WILL MONITOR, PO INTAKE, WEIGHTS, GI/SKIN AND LABS. 3. RD TO FOLLOW-UP 2-3 DAYS, HIGH RISK BEBO HAMILTON, RD
--- NOTE | 2023-01-10 16:17 | NUR ---
Report called to [facility] for room 105-B. Answered all questions. Pt. with no acute distress. Stable for transfer to the floor via bed, heart monitor, RN X 2. IV fluids stopped for transport. All pt. belongings taken with pt. including pt's cell phone, clothing, Pt. with no acute distress. Will cont to monitor.
--- NOTE | 2023-01-10 16:30 | NUR ---
RECEIVED ENDORSEMENT FROM SLOT MACHINE DEPARTMENT FLOORPERSON YUAN PT ARRIVED AROUND 1630 VIA GARO, PT IS STABLE, ORIENTED TO THE NEW ENVIRONMENT, HOW TO USE THE BED MECHANICS, CALL LIGHT AND TV. WILL CONTINUE WITH CURRENT POC.
--- NOTE | 2023-01-10 17:30 | NUR ---
P.T. NOTES P.T. EVAL COMPLETED; REFER TO EVAL FOR DETAILS.
--- NOTE | 2023-01-10 19:25 | NUR ---
ENDORSED TO CREDIT COLLECTION SPECIALIST NURSE FOR CONTINUITY OF CARE. PT IS STABLE, CALL LIGHT WITHIN REACH.
--- NOTE | 2023-01-10 19:30 | NUR ---
RECEIVED REPORT FROM DAY SHIFT NURSE FOR CONTINUITY OF CARE. PT IS AWAKE, ALERT AND ORIENTED X4, TAIWANESE SPEAKING ONLY. CURRENTLY ON ROOM AIR WITH NO APPARENT SIGNS OF DISTRESS NOTED. PATIENT STATES 10/10 PAIN AT ABDOMINAL INCISION SITE. PICC LINE LOCATED AT RIGHT UPPER ARM, INTACT AND PATENT. POC AND WHITE BOARD UPDATED. SAFETY MEASURES IN PLACE, CALL LIGHT WITHIN REACH. WILL MONITOR FREQUENTLY THROUGHOUT SHIFT.
--- NOTE | 2023-01-10 19:49 | NUR ---
Patient's Plan of Care was discussed and reviewed with BOAT OFFICER: ALIA
--- NOTE | 2023-01-10 20:06 | NUR ---
SCHEDULED MEDICATIONS ADMINISTERED WITH NO COMPLICATIONS. WILL CONTINUE MONITORING THE PT.
--- NOTE | 2023-01-10 23:30 | NUR ---
PT RESTING COMFORTABLY. RESPIRATIONS EVEN AND UNLABORED, NO VISIBLE SIGNS OF ACUTE DISTRESS NOTED. WILL CONTINUE TO MONITOR.
[2023-01-11] VITALS: BP 153/65
[2023-01-11] MEDS: INSULIN LISPRO SLIDING SCALE 100 UNITS/ML VIAL SUBQ PRN ×5 (01:41→23:57)
[2023-01-11] MEDS: MORPHINE SULFATE 2 MG/ML SYR IVP PRN ×5 (01:50→23:52)
[2023-01-11 04:00] VITALS: BP 146/57
[2023-01-11] MEDS: DEXT 5% /NACL 0.9% 1,000 ML IV SCH ×2 (05:12→21:52)
[2023-01-11] MEDS: BLOOD GLUCOSE MONITORING 1 DEV DEV FS SCH ×5 (05:40→23:55)
--- NOTE | 2023-01-11 05:49 | NUR ---
DRAINED 40ML FROM ODTTIE DRAIN. 600ML TOTAL INPUT, 650 TOTAL OUTPUT. NO BM THIS SHIFT. IV INFUSING WELL, PT COMPLAINT OF PAIN IN STOMACH 03/13. WILL MEDICATE PER MD ORDER.
[2023-01-11] MEDS: PIPERACILLIN/TAZOBACTAM 3.375 GM in DEXTROSE 5% 50 ML IV SCH ×3 (06:11→18:39)
[2023-01-11 06:55] LABS: BASOPHILS % (AUTO) 0.1 % (0.0-2.0); EOSINOPHILS % (AUTO) 0.1 % (0.0-4.0); HEMOGLOBIN 7.6 g/dL (12.0-18.0); LYMPHOCYTES # (AUTO) 0.7 K/uL (2.0-11.5); LYMPHOCYTES % (AUTO) 4.9 % (20.5-51.1); MEAN CORPUSCULAR HEMOGLOBIN 22 pg (27-31); MEAN CORPUSCULAR HGB CONC 32 g/dL (33-37); MONOCYTES # (AUTO) 1.6 K/uL (0.8-1.0); MONOCYTES % (AUTO) 10.5 % (1.7-9.3); NEUTROPHILS # (AUTO) 12.5 K/uL (1.8-7.7); NEUTROPHILS % (AUTO) 84.4 % (42.2-75.2); PLATELET COUNT (AUTO) 178 K/uL (140-450); RED BLOOD CELL COUNT(AUTO) 3.42 MIL/uL (4.20-6.10); RED CELL DISTRIBUTION WIDTH 29.3 % (11.6-13.7); WHITE BLOOD COUNT (AUTO) 14.9 K/uL (4.8-10.8)
[2023-01-11 07:04] LABS: ANION GAP 9.7 (8-16); CARBON DIOXIDE 27.8 mmol/L (21-32); CHLORIDE 107 mmol/L (98-107); CREATININE 0.9 mg/dL (0.6-1.3); GLUCOSE 223 mg/dL (74-106); SODIUM SERUM 142 mmol/L (136-145); UREA NITROGEN, BLOOD 24 mg/dL (7-18)
[2023-01-11 07:09] LABS: MAGNESIUM 1.7 mg/dL (1.8-2.4); PHOSPHORUS 2.3 mg/dL (2.5-4.9)
[2023-01-11 07:20] LABS: POTASSIUM 2.5 mmol/L (3.5-5.1)
--- NOTE | 2023-01-11 07:25 | NUR ---
RECEIVED PT FROM CERAMIC WORKER NURSE FOR CONTINUITY OF CARE. PT IN BED AWAKE AOX4. RESPIRATIONS EVEN AND UNLABORED ON RA. IV 20G ON L WRIST AND DENISSE PICC LINE DOUBLE LUMEN INFUSING D5/NS @60. DOTTIE DRAIN ON LEFT LOWER ABDOMEN DRAINING SANGUINEOUS FLUID. SKIN WARM AND DRY. CALL LIGHT WITHIN REACH. ALL SAFETY PRECAUTIONS IN PLACE.
[2023-01-11 08:00] VITALS: BP 154/67
[2023-01-11] MEDS: METOPROLOL 25 MG TAB PO SCH ×2 (08:19→20:15)
[2023-01-11] MEDS ORDERED: MAGNESIUM OXIDE 400 MG TAB PO PRN (08:45)
[2023-01-11] MEDS: PANTOPRAZOLE 40 MG INJ VIAL IVP SCH (10:14)
[2023-01-11] MEDS: POTASSIUM CHLORIDE 40 MEQ, LIDOCAINE MPF 1% 25 MG in NACL 0.9% 250 ML IV PRN (10:16)
[2023-01-11 12:00] VITALS: BP 161/66
[2023-01-11] MEDS: hydrALAZINE 20 MG/ML VIAL IVP PRN ×2 (13:02→22:27)
[2023-01-11] MEDS: HYDROmorphone 1 MG/ML AMP IVP PRN (14:23)
--- NOTE | 2023-01-11 15:24 | NUR ---
CALLED DR ROPER TO INFORM PT BP 215/76. RECEIVED ORDERS FOR ABD XRAY AND IVP HYDRALAZINE.
--- NOTE | 2023-01-11 15:50 | NUR ---
FAMILY AT BEDSIDE LEAVING, ASKED NURSE TO RETAKE BP AND TEMP BEFORE THEY LEAVE. BP NOW REDUCED TO 185/67. TEMP 97.5.
[2023-01-11] MEDS: hydrALAZINE 20 MG/ML VIAL IVP SCH ×2 (15:55→18:45)
[2023-01-11 16:00] VITALS: BP 188/66
--- NOTE | 2023-01-11 16:02 | NUR ---
INFORMED DR CHRISTIAN OF ABD U/S RESULTS. NO NEW ORDERS.
[2023-01-11] MEDS ORDERED: POTASSIUM CHLORIDE 80 MEQ, LIDOCAINE 1% 25 MG in NACL 0.9% 250 ML IV ONE (16:10)
[2023-01-11] MEDS: lisinopriL 10 MG TAB PO SCH (17:30)
--- NOTE | 2023-01-11 18:03 | NUR ---
INFORMED DR ROPER, THAT DR MORALES WAS MAKING ROUNDS AND SUGGEST NGT, BUT PUT NO ORDER. AWAITING RESPONSE.
--- NOTE | 2023-01-11 18:33 | NUR ---
ORDER HYDRALAZINE ONE TIME DOSE
--- NOTE | 2023-01-11 18:35 | NUR ---
PER HOLD DINNER, NO CHANGE IN DIET ORDERS.
[2023-01-11] MEDS ORDERED: hydrALAZINE 20 MG/ML VIAL IVP SCH (19:00)
--- NOTE | 2023-01-11 19:07 | NUR ---
ENDORSED PT TO INCOMING INSPECTOR NURSE FOR CONTINUITY OF CARE.
--- NOTE | 2023-01-11 19:32 | NUR ---
RECEIVED REPORT FROM DAY SHIFT NURSE FOR CONTINUITY CARE. PT CURRENTLY EXPERIENCING UNCONTROLLED HIGH BLOOD PRESSURE. IS AWARE. SUGGESTED POSSIBLE TRANSFER TO ICU FOR CLOSER CARE. WILL MONITOR BLOOD PRESSURE FREQUENTLY THROUGHOUT THE NIGHT.
[2023-01-11 20:00] VITALS: BP 158/63
--- NOTE | 2023-01-11 20:00 | NUR ---
Patient's Plan of Care was discussed and reviewed with HANNAH: RICKY
--- NOTE | 2023-01-11 20:10 | NUR ---
SCHEDULED MEDICATIONS ADMINISTERED. PT LAST BLOOD PRESSURE = 155/97. PT STATES 1010 PAIN. MORPHINE ADMINISTERED BY RN.
--- NOTE | 2023-01-11 22:25 | NUR ---
PT BLOOD PRESSURE OF 173/65, HEART RATE 109. POC DISCUSSED AND HYDRALAZINE WAS ADMINISTERED TO PT BY RN: LETICIA.
[2023-01-12] VITALS: BP 171/66
[2023-01-12] MEDS: PIPERACILLIN/TAZOBACTAM 3.375 GM in DEXTROSE 5% 50 ML IV SCH ×2 (00:16→05:12)
--- NOTE | 2023-01-12 02:08 | NUR ---
CONTACTED DR. ROPER ABOUT PATIENTS CONTINUING UNCONTROLLED BLOOD PRESSURE. DR ORDERED NORVASC 5 MG ONE TIME DOSE. PATIENTS CURRENT BLOOD PRESSURE CHECK = 149/69.
[2023-01-12] MEDS: HYDROmorphone 1 MG/ML AMP IVP PRN (02:25)
--- NOTE | 2023-01-12 02:47 | NUR ---
PT COMPLAINT OF 10/10 PAIN IN ABDOMEN. POC DISCUSSED AND DILAUDID WAS ADMINISTERED TO PT BY RN: LETICIA. WILL REASSESS PAIN LEVEL AND BLOOD PRESSURE IN ONE HOUR.
[2023-01-12] MEDS ORDERED: amLODIPine 5 MG TAB PO ONE (03:30)
--- NOTE | 2023-01-12 03:52 | NUR ---
BLOOD PRESSURE AFTER DILAUDID ADMINISTRATION = 134/64. HELD NEW ORDER FOR NORVASC ONE TIME DOSE. WILL CONTINUE TO MONITOR THE PATIENTS BLOOD PRESSURE FREQUENTLY.
[2023-01-12 04:00] VITALS: BP 134/69
--- NOTE | 2023-01-12 04:10 | NUR ---
RECEIVED CALL FROM PATIENTS SON ASKING FOR UPDATE ON PATIENT. INFORMED THE SON OF THE PATIENTS RECENT HISTORY OF HIS UNCONTROLLED BLOOD PRESSURE, WHICH THE SUN WAS AWARE OF. INFORMED THE SON THAT AFTER ADMINISTERING DILAUDID TO THE PATIENT, HE WAS RESTING COMFORTABLY AND HIS BLOOD PRESSURE HAD DROPPED TO LOW 134/69, BLOOD PRESSURE BEFORE DILAUDID ADMINISTRATION WAS 171/66. PATIENTS SON TO FOLLOW UP IN THE MORNING.
[2023-01-12] MEDS: BLOOD GLUCOSE MONITORING 1 DEV DEV FS SCH (05:35)
[2023-01-12] MEDS: INSULIN LISPRO SLIDING SCALE 100 UNITS/ML VIAL SUBQ PRN (05:36)
--- NOTE | 2023-01-12 05:44 | NUR ---
PT BLOOD GLUCOSE LEVEL OF 241. 4 UNITS OF HUMALOG INSULIN ADMINISTERED, PT TOLERATED WELL.
[2023-01-12 06:00] LABS: BASOPHILS % (AUTO) 0.1 % (0.0-2.0); EOSINOPHILS % (AUTO) 0.1 % (0.0-4.0); HEMATOCRIT 26.4 % (36-52); HEMOGLOBIN 8.3 g/dL (12.0-18.0); LYMPHOCYTES # (AUTO) 0.5 K/uL (2.0-11.5); LYMPHOCYTES % (AUTO) 2.7 % (20.5-51.1); MEAN CORPUSCULAR HEMOGLOBIN 22 pg (27-31); MEAN CORPUSCULAR HGB CONC 32 g/dL (33-37); MEAN CORPUSCULAR VOLUME 70.3 fL (80-94); MONOCYTES # (AUTO) 1.7 K/uL (0.8-1.0); MONOCYTES % (AUTO) 9.9 % (1.7-9.3); NEUTROPHILS # (AUTO) 15.1 K/uL (1.8-7.7); NEUTROPHILS % (AUTO) 87.2 % (42.2-75.2); PLATELET COUNT (AUTO) 193 K/uL (140-450); RED BLOOD CELL COUNT(AUTO) 3.75 MIL/uL (4.20-6.10); RED CELL DISTRIBUTION WIDTH 30.2 % (11.6-13.7); WHITE BLOOD COUNT (AUTO) 17.3 K/uL (4.8-10.8)
[2023-01-12 06:24] LABS: ANION GAP 13.1 (8-16); CARBON DIOXIDE 26.6 mmol/L (21-32); CHLORIDE 110 mmol/L (98-107); CREATININE 1.1 mg/dL (0.6-1.3); GLUCOSE 252 mg/dL (74-106); SODIUM SERUM 147 mmol/L (136-145); UREA NITROGEN, BLOOD 32 mg/dL (7-18)
[2023-01-12 06:26] LABS: POTASSIUM 2.7 mmol/L (3.5-5.1)
[2023-01-12 06:39] LABS: MAGNESIUM 2.1 mg/dL (1.8-2.4); PHOSPHORUS 2.9 mg/dL (2.5-4.9)
[2023-01-12 08:00] VITALS: BP 126/58
[2023-01-12] MEDS ORDERED: SODIUM PHOS / POTASSIUM PHOS 1 PKT PDR PO SCH (09:00)
[2023-01-12] MEDS ORDERED: POTASSIUM CHLORIDE 40 MEQ, LIDOCAINE 1% 25 MG in NACL 0.9% 250 ML IV SCH (09:00)
[2023-01-12] MEDS: MORPHINE SULFATE 2 MG/ML SYR IVP PRN (09:43)
[2023-01-12] MEDS: PANTOPRAZOLE 40 MG INJ VIAL IVP SCH (09:44)
[2023-01-12] MEDS: lisinopriL 10 MG TAB PO SCH (09:45)
[2023-01-12] MEDS: METOPROLOL 25 MG TAB PO SCH (09:46)
--- NOTE | 2023-01-12 10:24 | NUR ---
Pt. arrived in ICU with accounts payable technician at beside, housekeeping aid, telemetry floor RN, on transport monitor. Pt. is currently intubated with breathing by ET and breathing machine. Pt. tolerating with no diff. symmetrical chest rise, trachea at midline, positive breath sounds in all lung schulte. Pt. immediately placed on ICU heart monitor, BP monitor. Pt. in no acute distress. Pt. is non-responsive to verbal or tactile stimuli. NO family at bedside now. Will continue to monitor.
--- NOTE | 2023-01-12 10:26 | NUR ---
Pt. with slowing bradycardia, possible ATRIAL fib. with no pulse detected on carotid artery pulse. Azalia Conner called again, and CPR started for Resuscitation purposes. Please see Azalia Conner Record for further details.
[2023-01-12] MEDS ORDERED: SODIUM BICARBONATE 8.4% PFS 50 MEQ/50 ML SYR IVP ONE (10:30)
[2023-01-12] MEDS ORDERED: EPINEPHrine PFS 0.1 MG/ML SYR IVP ONE (10:30)
--- NOTE | 2023-01-12 10:56 | NUR ---
0940 NURSE VISITED PT TO MEDICATE 0900 AM MED-PASS VISIT AT BEDSIDE. FAMILY AT BEDSIDE AT 0940, REQUESTED CHECK LAST TIME PAIN MEDICATION GIVEN. MORPHINE 3MG WAS GIVEN AT 2223, 01/11/2023, AND DILAUDID WAS GIVEN AT 0225, 01/12/2023. PATIENT MEDICATED WITH MORPHINE 3 MG PER FAMILY REQUEST, AND FAMILY STATE THAT "PATIENT SHOULD STAY IN ICU". AFTER MORPHINE AND PROTONIX WERE GIVEN. PATIENT STARTED VOMITING LARGE AMOUNTS (ABOUT 500ML - 1000ML) OF ORANGE COLOR AND STOOL SMELLING EMESIS. FAMILY AND NURSE HELPED PATIENT TURN TO LEFT SIDE OF HIS BODY TO PREVENT ASPIRATION. NURSE THEN CALLED CODE IMMEDIATELY - RN NOTED THAT PATIENT WAS IN MILD DISTRESS AND NEED FURTHER ASSISTANCE. ABOUT 10:00 AM O'CLOCK CPR STARTED. AROUND 1017, PATIENT STARTED HAVE PULSE, AND STAFF TRANSFER PATIENT TO ICU. AROUND 10:24 AM PATIENT ARRIVED ICU, AROUND 1026, MONITOR SHOW A. BIF W/ RVR. NO PULSE. CODE CALL AGAIN (SEE CODE BLUE RECORDS FOR DETAILS). 10:51 AM PATIENT WAS PRONOUNCED BY EMERGENCY ROOM DOCTOR DR. MICHELLE IN ICU BED 6. PLEASE SEE CODE BLUE REPORT FOR ALL CODE BLUE DETAILS.
--- NOTE | 2023-01-12 11:30 | NUR ---
RESPONDED TO CODE RAKEL CALLED AT 0957. PATIENT UNRESPONSIVE. CPR STARTED. PROVIDED BREATHS VIA AMBU BAG AND SET UP SUCTION. ASSISTED ER MD WITH INTUBATION. INTUBATED PATIENT WITH SIZE 8.0 ETT. PATIENT INTUBATED AT 24cm @ TEETH. POSITIVE COLOR CHANGE NOTED, BILATERAL BREATH SOUNDS HEARD THROUGH AUSCULTATION, AND ADEQUATE CHEST RISE AND FALL NOTED. AIRWAY PATENT AND SECURED BY TUBE DUNAWAY AND BITE BLOCK. PATIENT TRANSFERRED TO ICU FOR FURTHER MONITORING. ARRIVED TO ICU, PATIENT BEING MANUALLY VENTILATED. CHECKED FOR PATIENT PULSE AND NO PULSE WAS FOUND. CODE ROXANNE CALLED AT 1028. CPR STARTED. PATIENT BROUGHT BACK AND PLACED ON VENTILATOR. RN STATED EPI WAS WEARING OFF AND NO PULSE WAS FOUND. CODE CALLED @1040 AND CPR STARTED. ER MD CALLED TIME OF @1051.
--- NOTE | 2023-01-12 11:50 | NUR ---
[facility] called at and spoke with Dian. Pt.'s case has been accepted and they will reach out to family for possible organ donation, etc. Reference number [id number]. Record of completed per hospital protocol.
--- NOTE | 2023-01-12 12:31 | NUR ---
Initial call placed to [facility] coroner's office [phone]. Spoke with Mary from the [facility]'s depart as call was transferred to them. Case was presented and was instructed that corone's office will call ICU for further details.
--- NOTE | 2023-01-12 12:56 | NUR ---
Krystal Frederick called ICU from import/export specialist's office ([phone]). Case was presented and all patient questions answered per her request. Krystal Otoniel, after receiving all pt. information, DECLINED the case for the import/export specialist's to examine. Per Ms. Frederick pt.'s body can be released to home.
--- NOTE | 2023-01-12 13:20 | NUR ---
Spoke with pt.'s family in quiet-room. Provided our hospital's deepest condolences for their loss. Spoke with pt.'s son JORGE DENNIS. Per pt.'s son, he has arranged service with [facility] [phone] [place] [address]. He agrees to release pt.'s body remains to [facility] service. Jorge Dennis's female fur liner in the room as well, and other family members as well.
--- NOTE | 2023-01-12 13:24 | NUR ---
Called [facility] home at [phone] and spoke with Azul. She agrees that they have been contacted by pt.'s son Jorge Dennis. Pt.'s body will be picked up in 90 min. or around 15:00. Azul was informed that this hospital does not have a morgue or refrigeration for pt.'s body and that he must be picked without delay. She agrees to crop picker pt.'s body. Hospital retail warehouse supervisor has been made aware of all occurrences.
--- NOTE | 2023-01-12 14:16 | NUR ---
Postmortem care provided to pt.'s body. Pt.'s family left the hospital and will not return. Placed 3 name tags on pt.'s body as per protocol.
--- NOTE | 2023-01-12 15:17 | NUR ---
[facility] home at [phone] at bedside to sampler pickup pt.'s body. Pt. body remains positively identified per protocol. Sandip Booth from [facility] home sampler pickup pt.'s body and left the hospital.
== END 2023-01-12 15:17 | DRG 853 ==
LOC: MED 18:25 → MTU 21:07 → MIC 21:52 → MTU 01-10 16:50 → MIC 01-12 10:30
PROVIDERS: ADMIT Family Medicine; ATTEND Family Medicine
PROC: 0DQ80ZZ Repair Small Intestine, Open Approach (ICD-10-PCS; 2023-01-08)
PROC: 0DT80ZZ Resection of Small Intestine, Open Approach (ICD-10-PCS; 2023-01-08)
PROC: 02HV33Z Insertion of Infusion Device into Superior Vena Cava, Percutaneous Approach (ICD-10-PCS; 2023-01-08)
PROC: B548ZZA Ultrasonography of Superior Vena Cava, Guidance (ICD-10-PCS; 2023-01-08)
PROC: 0D180Z8 Bypass Small Intestine to Small Intestine, Open Approach (ICD-10-PCS; 2023-01-08)
PROC: 0DN80ZZ Release Small Intestine, Open Approach (ICD-10-PCS; 2023-01-08)
PROC: 30233N1 Transfusion of Nonautologous Red Blood Cells into Peripheral Vein, Percutaneous Approach (ICD-10-PCS; 2023-01-09)
PROC: 0BH17EZ Insertion of Endotracheal Airway into Trachea, Via Natural or Artificial Opening (ICD-10-PCS; 2023-01-11)
PROC: 5A12012 Performance of Cardiac Output, Single, Manual (ICD-10-PCS; principal; 2023-01-12)
DX: A41.9 Sepsis, unspecified organism (principal); E43 Unspecified severe protein-calorie malnutrition; K63.1 Perforation of intestine (nontraumatic); N17.0 Acute kidney failure with tubular necrosis; K65.9 Peritonitis, unspecified; K56.609 Unspecified intestinal obstruction, unspecified as to partial versus complete obstruction; N39.0 Urinary tract infection, site not specified; I10 Essential (primary) hypertension; E11.9 Type 2 diabetes mellitus without complications; E86.0 Dehydration; E83.42 Hypomagnesemia; D63.8 Anemia in other chronic diseases classified elsewhere; I70.90 Unspecified atherosclerosis; K52.9 Noninfective gastroenteritis and colitis, unspecified; I46.9 Cardiac arrest, cause unspecified; Z20.822 Contact with and (suspected) exposure to COVID-19; Z79.899 Other long term (current) drug therapy; Z79.4 Long term (current) use of insulin; Z68.21 Body mass index [BMI] 21.0-21.9, adult
CPT/HCPCS: 31500; 36415; 36430; 71045; 74021; 80048; 80053; 81001; 82150; 82948; 83036; 83605; 83690; 83735; 83880; 84100; 84436; 84439; 84443; 84479; 84484; 85025; 85610; 85730; 86886; 86900; 86901; 86920; 87040; 87081; 87086; 88304; 88307; 92950; 93005; 94002; 96365; 96375; 96376; 97112; 97116; 97163-GP; 99291; A9153; C9113; J0171; J0330; J0360; J0895; J1100; J1170; J1815; J2001; J2270; J2405; J2543; J2704; J3010; J3475; J3480; J3490; J7030; J7060; J7120; P9016; Q0092